=== PATIENT | female | born 1965 | race Asian ===

== ENCOUNTER → 2016-10-10 | Outpatient (CLI) | payer MEDICAID | LOC: FIMAGING 14:39 | DX: Z12.31 Encounter for screening mammogram for malignant neoplasm of breast (principal) | CPT/HCPCS: G0202 ==

== ENCOUNTER → 2016-10-26 | Outpatient (CLI) | payer MEDICAID | LOC: FIMAGING 14:50 | PROVIDERS: ATTEND Emergency Medicine | DX: R92.8 Other abnormal and inconclusive findings on diagnostic imaging of breast (principal) | CPT/HCPCS: G0206 ==

== ENCOUNTER → 2016-10-26 | Outpatient (CLI) | payer MEDICAID ==
[2016-10-26 17:00] LABS: C-REACTIVE PROTEIN < 5.0 mg/L (<10.0)
== END ==
LOC: FLAB 16:01
PROVIDERS: ATTEND Emergency Medicine
DX: M25.541 Pain in joints of right hand (principal); M25.561 Pain in right knee; M25.562 Pain in left knee

== ENCOUNTER → 2016-10-26 | Outpatient (CLI) | payer MEDICAID | LOC: FIMAGING 15:55 | PROVIDERS: ATTEND Emergency Medicine | DX: M79.644 Pain in right finger(s) (principal) | CPT/HCPCS: G0206 ==

== ENCOUNTER → 2017-01-26 | Outpatient (CLI) | payer MEDICAID | LOC: FIMAGING 08:16 | PROVIDERS: ATTEND Physician Assistant | DX: R13.14 Dysphagia, pharyngoesophageal phase (principal); K21.9 Gastro-esophageal reflux disease without esophagitis ==

== ENCOUNTER 2017-06-28 22:23 | Inpatient (IN) | payer MEDICAID ==
[2017-06-28] MEDS ORDERED: HYDROmorphONE/DILAUDID 1 MG/ML INJ IVP ONE (22:36)
[2017-06-28] MEDS ORDERED: NS 1,000 ML IV ONE ×2 (22:36→22:58)
[2017-06-28] MEDS ORDERED: ONDANSETRON 4 MG/2 ML VIAL IVP ONE (22:36)
--- NOTE | 2017-06-28 22:40 | EDPHY ---
H & P Stated Complaint: abd pain HPI/ROS: HPI CHIEF COMPLAINT: Abdominal pain HISTORY OF PRESENT ILLNESS: This patient very pleasant 51-year-old female she presents emergency room by private vehicle with her significant other for abdominal pain. The history comes from her significant other/boyfriend at bedside. According to him 45 minutes to an hour ago she was in the kitchen started developing abdominal pain rather severe. It is located in her epigastric region it is unclear at this time if her radiates anywhere. The patient presents emergency room screaming in pain I am unable at this time to get an accurate history review of systems due to her being so uncomfortable. The history comes from her boyfriend. Current pain level 10/10. Located epigastric right upper quadrant. She is screaming in pain. Past Medical History: Denies significant medical history except for GERD. Past Surgical History: Significant other reports some type of esophageal surgery no other significant abdominal surgeries. Social History: Denies daily use drugs alcohol tobacco products. Family History: Noncontributory. ROS REVIEW OF SYSTEMS: Limited at this time. Exam Constitutional writhing in pain, screaming, unable to answer questions triage nursing summary reviewed, vital signs reviewed, awake/alert. Eyes normal conjunctivae and sclera, EOMI, PERRLA. HENT normal inspection, atraumatic, moist mucus membranes, no epistaxis, neck supple/ no meningismus, no raccoon eyes. Respiratory clear to auscultation bilaterally, normal breath sounds, no respiratory distress, no wheezing. Cardiovascular rate normal, regular rhythm, no murmur, no edema, distal pulses normal. Gastrointestinal tender palpation in the epigastric region, no rebound, no guarding, normal bowel sounds, no distension, no pulsatile mass. Genitourinary no CVA tenderness. Musculoskeletal no midline vertebral tenderness, full range of motion, no calf swelling, no tenderness of extremities, no meningismus, good pulses, neurovascularly intact. Skin pink, warm, & dry, no rash, skin atraumatic. Neurologic awake, alert and oriented x 3, AAOx3, moves all 4 extremities equally, motor intact, sensory intact, CN II-XII intact, normal cerebellar, normal vision, normal speech. Psychiatric normal mood/affect. Heme/Lymph/Immune no lymphadenopathy. Differential diagnosis includes but is not limited to and in no particular order : Bowel obstruction, appendicitis, gallbladder disease, diverticulitis, colitis , enteritis, perforated viscus, gastritis, GERD, esophagitis, urinary tract infection, pyelonephritis, kidney stones Medical Decision Making: Plan for this patient IV established with IV fluid bolus, 1 mg IV Dilaudid for acute pain control, 4 mg IV Zofran for nausea, ultrasound right upper quadrant, upright chest x-ray to evaluate for free air, EKG, troponin, lipase and LFTs. Re-evaluation: EKG interpretation by me on record in [employer] system. Impression time of EKG 2250, this is sinus rhythm rate of 53. No acute ischemic changes appreciated. Unremarkable EKG. 2315: Patient's initial lactic acid 2.7. Lactic acid was not pulled for sepsis. It was evaluated for abdominal pain. However will repeat after IV fluids. 0121: Patient's ultrasound shows no gallstones however there is trace pericholecystic fluid a CBD duct that is dilated 6 mm and gallbladder wall thickening 3.4 mm. This called to me by Dr. Ez Kelly. 0127: I have asked Dr. Latonia Jimenez with surgery to come see and evaluate this patient. She does have reproducible epigastric pain on exam right upper quadrant pain. It is noted her bilirubin is not elevated LFTs are not elevated however she did have 3 episodes of vomiting here. Has significant pain or epigastric right upper quadrant. No significant lower abdominal pain. Given her ultrasound report it is possible she has acalculous cholecystitis. I did ask Dr. Felder if she would like me to perform a CT scan abdomen pelvis with IV contrast tell possibly daily other cause of abdominal pain but however at this time she would like to come and see this patient, and hold off on the scan at this time. Source: Patient - Personal History LMP (Females 10-55): Post Menopausal Current Tetanus/Diphtheria Vaccine: Yes Current Tetanus Diphtheria and Acellular Pertussis (TDAP): Yes - Medical/Surgical History Hx Asthma: No Hx Chronic Respiratory Disease: No Hx Diabetes: No Hx Cardiac Disease: No Hx Renal Disease: No Hx Cirrhosis: No Hx Alcoholism: No Hx HIV/AIDS: No Hx Splenectomy or Spleen Trauma: No Other PMH: GERD - Social History Smoking Status: Never smoked Constitutional: Initial Vital Signs Temperature (C) 36.0 C 06/28/17 22:26 Heart Rate 47 L 06/28/17 22:26 Respiratory Rate 24 H 11/16/17 22:26 Blood Pressure 128/71 H 06/28/17 22:26 O2 Sat (%) 100 06/28/17 22:26 O2 Delivery Mode Room Air O2 (L/minute) 2 Allergies/Adverse Reactions: ibuprofen Allergy (Verified 06/29/17 09:35) GI Distress Home Medications: Medication Instructions Recorded Omeprazole [Prilosec 20 mg] 40 mg PO DAILY 06/28/17 C/E/Zn/Cu/OM3/DHA/EPA/LUT/ZEAX 1 each PO DAILY 06/29/17 [Preservision Areds 2 Softgel] Carboxymethylcellulose 1% [Refresh 1 drop EACHEYE DAILY PRN 06/29/17 Celluvisc (*)] Cholecalciferol Vit D3 [Vitamin D3 1,000 units PO DAILY 06/29/17 (*)] Multivitamins [Multivitamin (*)] 1 each PO DAILY 06/29/17 Medical Decision Making - Data Points Laboratory Results: Laboratory Results 06/30/17 05:18 06/30/17 05:18 Medications Given: Hyoscyamine Sulfate (Levsin, Hyomax-Sl) 0.125 mg PO Q6HRS PRN PRN Reason: Pain, Breakthrough Stop: 12/27/17 11:59 Last Admin: 06/30/17 15:22 Dose: 0.125 mg Potassium Chloride/Dextrose/Sod Cl (D5w 1/2 Ns W/ 20 Kcl/L) 1,000 mls @ 100 mls /hr IV CONT CHERRY Stop: 12/26/17 01:59 Last Admin: 06/30/17 17:30 Dose: 1,000 mls Lorazepam (Ativan) 0.5 - 1 mg PO Q4HRS PRN PRN Reason: Anxiety, Able to Take PO Stop: 12/27/17 15:26 Last Admin: 06/30/17 16:50 Dose: 1 mg Pantoprazole Sodium (Protonix) 40 mg IVP BID CHERRY Stop: 12/27/17 20:59 Last Admin: 06/30/17 20:57 Dose: 40 mg Promethazine HCl (Phenergan) 6.25 - 12.5 mg IVP Q6HRS PRN PRN Reason: Nausea/Vomiting, Can't Take PO Stop: 12/26/17 09:23 Last Admin: 06/29/17 20:53 Dose: 6.25 mg Senna/Docusate Sodium (Senokot-S) 1 - 2 tab PO BID CHERRY PRN Reason: Protocol Stop: 12/27/17 08:59 Last Admin: 06/30/17 20:58 Dose: Not Given Discontinued Medications Ertapenem (Invanz) 1 gm IVP ONCE ONE PRN Reason: Protocol Stop: 06/29/17 19:30 Last Admin: 06/29/17 20:29 Dose: 1 gm Hydromorphone HCl (Dilaudid) 1 mg IVP EDNOW ONE Stop: 06/28/17 22:37 Last Admin: 06/28/17 22:44 Dose: 1 mg Hydromorphone HCl (Dilaudid) 0.5 mg IVP EDNOW ONE Stop: 06/29/17 00:01 Last Admin: 06/29/17 00:02 Dose: 0.5 mg Sodium Chloride (Ns) 1,000 mls @ 0 mls/hr IV EDNOW ONE; Wide Open PRN Reason: Protocol Stop: 06/28/17 22:37 Last Admin: 06/28/17 22:47 Dose: 1,000 mls Sodium Chloride (Ns) 1,000 mls @ 0 mls/hr IV ONCE ONE PRN Reason: Wide Open Stop: 06/28/17 22:59 Last Admin: 06/28/17 23:30 Dose: 1,000 mls Sodium Chloride (Ns) 1,000 mls @ 0 mls/hr IV ONCE ONE PRN Reason: Wide Open Stop: 06/29/17 01:15 Last Admin: 06/29/17 01:24 Dose: 1,000 mls Morphine Sulfate (Morphine) 2 mg IVP Q1HR PRN PRN Reason: Pain, Severe Unable to Take PO Stop: 07/09/17 01:48 Last Admin: 06/30/17 14:54 Dose: 2 mg Ondansetron HCl (Zofran) 4 mg IVP EDNOW ONE Stop: 06/28/17 22:37 Last Admin: 06/28/17 22:45 Dose: 4 mg Ondansetron HCl (Zofran) 4 mg IVP EDNOW ONE Stop: 06/29/17 01:14 Last Admin: 06/29/17 01:20 Dose: 4 mg Ondansetron HCl (Zofran) 4 mg IVP Q4HRS PRN PRN Reason: Nausea/Vomiting, Can't Take PO Stop: 12/26/17 01:49 Last Admin: 06/30/17 14:57 Dose: 4 mg Pantoprazole Sodium (Protonix) 40 mg PO DAILY [facility] Stop: 12/26/17 08:59 Last Admin: 06/29/17 10:29 Dose: Not Given Pantoprazole Sodium (Protonix) 40 mg IVP DAILY [facility] Stop: 12/27/17 08:59 Last Admin: 06/30/17 08:43 Dose: 40 mg Polyethylene Glycol/Electrolytes (Gavilyte - G) 4,000 ml PO ONCE ONE Stop: 06/30/17 12:13 Last Admin: 06/30/17 15:34 Dose: 4,000 ml Polyethylene Glycol/Electrolytes (Gavilyte - G) 4,000 ml PO ONCE ONE Stop: 06/30/17 15:31 Last Admin: 06/30/17 15:36 Dose: Not Given Departure - Departure Disposition: [facility] Inpatient Acute Clinical Impression: Abdominal pain Qualifiers: Abdominal location: right upper quadrant Qualified Code(s): R10.11 - Right upper quadrant pain Condition: Fair
[2017-06-28 22:49] LABS: % IMMATURE GRANULYOCYTES 0.3 % (0.0-1.1); ABSOLUTE IMMATURE GRANULOCYTES 0.03 10^3/uL (0.00-0.10); ADD DIFF? NO; ADD MORPH? NO; ADD SCAN? NO; ATYPICAL LYMPHOCYTE FLAG 10 (0-99); FRAGMENT RBC FLAG 0 (0-99); HEMATOCRIT 42.1 % (38.0-47.0); HEMOGLOBIN 14.5 g/dL (12.6-16.3); LEFT SHIFT FLG 0 (0-99); LIPEMIA HEMOLYSIS FLAG 90 (0-99); MEAN CELL HEMOGLOBIN 29.8 pg (27.9-34.1); MEAN CELL HEMOGLOBIN CONCENTR. 34.4 g/dL (32.4-36.7); MEAN CELL VOLUME 86.6 fL (81.5-99.8); MEAN PLATELET VOLUME 9.5 fL (8.7-11.7); PLATELET CLUMPS FLAG 10 (0-99); PLATELET COUNT 247 10^3/uL (150-400); RED BLOOD CELL COUNT 4.86 10^6/uL (4.18-5.33); RED CELL DISTRIBUTION WIDTH 13.2 % (11.5-15.2)
--- NOTE | 2017-06-28 22:53 | CPEKG ---
Heart Rate: 53 RR Interval: 1132 P-R Interval: 176 QRSD Interval: 88 QT Interval: 500 QTC Interval: 470 P Ponce: 16 QRS Ponce: 80 T Wave Ponce: 50 EKG Severity - NORMAL ECG - EKG Impression: SINUS RHYTHM Electronically Signed By: Mo Reyes 01-Jul-2017 13:56:53
[2017-06-28 22:58] LABS: APTT 23.3 SEC (23.0-38.0); INR 0.96 (0.83-1.16); PROTIME(PATIENT) 12.7 SEC (12.0-15.0)
[2017-06-28 23:04] LABS: ALANINE AMINOTRANSFERASE 45 IU/L (9-52); ALBUMIN 4.4 g/dL (3.5-5.0); ALKALINE PHOSPHATASE 90 IU/L (38-126); ANION GAP 13 mEq/L (8-16); ASPARTATE AMINOTRANSFERASE 27 IU/L (14-46); BILIRUBIN,TOTAL 0.2 mg/dL (0.1-1.4); BILIRUBIN-UNCONJUGATED 0.2 mg/dL (0.0-1.1); CALCIUM 9.5 mg/dL (8.5-10.4); CARBON DIOXIDE 24 mEq/l (22-31); CHLORIDE 107 mEq/L (97-110); CREATININE 0.8 mg/dL (0.6-1.0); GLOMERULAR FILTRATION RATE > 60; GLUCOSE 114 mg/dL (70-100); POTASSIUM 3.8 mEq/L (3.5-5.2); SODIUM 144 mEq/L (134-144); TOTAL PROTEIN 6.8 g/dL (6.3-8.2)
[2017-06-28 23:15] LABS: TROPONIN I < 0.012 ng/mL (0.000-0.034)
[2017-06-28] MEDS ORDERED: HYDROmorphONE/DILAUDID 1 MG/ML INJ ONE (23:59)
[2017-06-29] MEDS ORDERED: HYDROmorphONE/DILAUDID 1 MG/ML INJ IVP ONE
[2017-06-29 00:03] LABS: COLOR YELLOW; LEUKOCYTE ESTERASE,URINE 2+ (NEGATIVE); NITRITE,URINE NEGATIVE (NEGATIVE)
[2017-06-29 00:04] LABS: MUCUS TRACE /lpf (NONE-1+); WBC,URINE 15-25 /hpf (0-3)
[2017-06-29] MEDS ORDERED: ONDANSETRON 4 MG/2 ML VIAL IVP ONE (01:13)
[2017-06-29] MEDS ORDERED: NS 1,000 ML IV ONE (01:14)
[2017-06-29] MEDS ORDERED: ACETAMINOPHEN 325 MG TAB PO PRN (01:49)
[2017-06-29] MEDS: ONDANSETRON 4 MG/2 ML VIAL IVP PRN ×3 (02:47→17:57)
--- NOTE | 2017-06-29 02:55 | GHP ---
[f rep st] HISTORY AND PHYSICAL DATE OF ADMISSION: 06/29/2017 CHIEF COMPLAINT: Abdominal pain. HISTORY OF PRESENT ILLNESS: The patient is a 51-year-old woman who went out to dinner with her frien d. She returned home and had abrupt onset of abdominal pain which dropped her to her knees. Her hus band observed her at home for approximately 5 minutes and then brought her into the emergency room. He has never seen her in pain like this before. In the emergency room she had laboratory work obtain ed which is essentially normal as well as an ultrasound which showed no gallstones, mild gallbladder wall thickening, and a mildly dilated common bile duct. Her pain has since then resolved. She had a ssociated nausea, vomiting. PAST MEDICAL HISTORY: Esophageal stricture. PAST SURGICAL HISTORY: None. SOCIAL HISTORY: She is a nonsmoker. FAMILY HISTORY: No family history of gallbladder disease. REVIEW OF SYSTEMS: Difficult to obtain as she is not participating in the exam fully. PHYSICAL EXAMINATION: VITALS: Reviewed. GENERAL: Pleasant, well-nourished, well-groomed woman daily sears on bed sleeping very quiet throughout the exam. Only participates with a lot of direct questionin g and will answer appropriately otherwise her is answering for her. HEENT: Normocephalic no gross hearing deficits. Mucous membranes moist. Pupils equal and round. No scleral icterus. LUNG S: Clear to auscultation bilaterally. No increased work of breathing. CARDIAC: Regular rate. ABD OMEN: Bowel sounds present. She is soft and nontender in my exam. No distention. MUSCULOSKELETAL: Normal nails. NEUROLOGIC: Grossly intact. PSYCHIATRIC: Very quiet. SKIN: Warm and dry. IMPRESSION AND PLAN: A 51-year-old woman who may have passed a gallstone as on ultrasound there are no additional gallstones. She is asymptomatic. We will watch her overnight. She could also have ac alculous cholecystitis. I can consider obtaining a HIDA scan tomorrow morning. I do not think that she passed a kidney stone. As she is more alert, then we can ask her more questions about her bowel habits and make sure that she does not have a bowel obstruction. At this time, I do not think that i s what is going on. Also, in the differential could be an ulcer although her pain has improved great ly. Again, we will admit her overnight and monitor her. /[id number]/MODL
[2017-06-29 05:20] LABS: % IMMATURE GRANULYOCYTES 0.3 % (0.0-1.1); ABSOLUTE IMMATURE GRANULOCYTES 0.02 10^3/uL (0.00-0.10); ADD DIFF? NO; ADD MORPH? NO; ADD SCAN? NO; ATYPICAL LYMPHOCYTE FLAG 0 (0-99); FRAGMENT RBC FLAG 0 (0-99); HEMATOCRIT 38.7 % (38.0-47.0); HEMOGLOBIN 13.2 g/dL (12.6-16.3); LEFT SHIFT FLG 10 (0-99); LIPEMIA HEMOLYSIS FLAG 90 (0-99); MEAN CELL HEMOGLOBIN 29.9 pg (27.9-34.1); MEAN CELL HEMOGLOBIN CONCENTR. 34.1 g/dL (32.4-36.7); MEAN CELL VOLUME 87.6 fL (81.5-99.8); MEAN PLATELET VOLUME 10.1 fL (8.7-11.7); PLATELET CLUMPS FLAG 10 (0-99); PLATELET COUNT 204 10^3/uL (150-400); RED BLOOD CELL COUNT 4.42 10^6/uL (4.18-5.33); RED CELL DISTRIBUTION WIDTH 13.2 % (11.5-15.2)
[2017-06-29 05:38] LABS: ALANINE AMINOTRANSFERASE 59 IU/L (9-52); ALBUMIN 3.9 g/dL (3.5-5.0); ALKALINE PHOSPHATASE 67 IU/L (38-126); ANION GAP 12 mEq/L (8-16); ASPARTATE AMINOTRANSFERASE 41 IU/L (14-46); BILIRUBIN,TOTAL 0.2 mg/dL (0.1-1.4); CALCIUM 8.4 mg/dL (8.5-10.4); CARBON DIOXIDE 22 mEq/l (22-31); CHLORIDE 108 mEq/L (97-110); CREATININE 0.6 mg/dL (0.6-1.0); GLOMERULAR FILTRATION RATE > 60; GLUCOSE 111 mg/dL (70-100); POTASSIUM 4.3 mEq/L (3.5-5.2); SODIUM 142 mEq/L (134-144); TOTAL PROTEIN 6.3 g/dL (6.3-8.2)
[2017-06-29] MEDS ORDERED: PANTOPRAZOLE SODIUM 40 MG TAB PO SCH (09:00)
--- NOTE | 2017-06-29 09:30 | SOAPPROG ---
SOAP Progress Note Assessment/Plan: Assessment: Epigastric abdominal pain Nausea and Vomiting Hx of GERD Plan: 51 year old female presents with epigastric abdominal pain, nausea, and vomiting , which started shortly after eating [place] food last night. US showed gallbladder wall thickening, but no cholelithiasis. Today, pt with persistent nausea and vomiting. She reports the abdominal pain has mildly improved. Will obtain HIDA scan for further evaluation of hepatobiliary function. Can also consider an EGD to evaluate for ulcers, given patient's history of GERD. Will continue to administer pain and nausea medications as needed. Consider CT if pain progresses to rule out SBO or other source. Addendum: HIDA normal, saw patient at 1730 and continued diffuse abdominal pain. Will order CT 06/29/17 12:03 06/29/17 17:50 Subjective: Pt is a 51 yo female with history of GERD who presented to the emergency room with complaints of abdominal pain, nausea, and vomiting, which started abruptly after eating. Pt had US done at that time, which showed gallbladder wall thickening. This morning, pt still with persistent nausea, vomiting, and abdominal pain despite morphine and zofran. Pt states the emesis has been dark in color, shes describes as "dark chocolate". Pt does report some mild improvement in the pain. Denies any diarrhea, chest pain, shortness of breath, or fevers. Denies experiencing similar symptoms in the past. Takes 40mg of omeprazole daily. Per , pt had an esophageal dilation done about 6 months ago, due to narrowing of her esophagus from scar tissue caused by GERD. Objective: General: Pt appears uncomfortable due to pain. No acute distress Skin: Warm and dry HEENT: Normocephalic. No gross hearing deficits. Mucous membranes moist Resp: CTAB, no increased work of breathing Cardiac: RRR, no peripheral edema. DP & PT pulses 2+ and equal Abdomen: Non distended. Mild epigastric and RUQ ttp with voluntary guarding. Negative London's sign. MSK: Moving all extremities equally Neuro: Alert and appropriate Vital Signs Temp Pulse Resp BP Pulse Ox 36.5 C 74 17 131/87 H 92 06/29/17 08:22 06/29/17 08:22 06/29/17 08:22 06/29/17 08:22 06/29/17 08:22 Laboratory Results 06/29/17 04:36 06/29/17 04:36 06/28/17 06/29/17 06/30/17 05:59 05:59 05:59 Intake Total 3300 Output Total 601 500 Balance 2699 -500 PT 12.7 SEC (12.0-15.0) 06/28/17 22:40 INR 0.96 (0.83-1.16) 06/28/17 22:40 ICD10 Worksheet Patient Problems: Problems Problem Status Onset Abdominal pain Acute - ICD10 Problem Qualifiers (1) Abdominal pain
[2017-06-29] MEDS: PROMETHAZINE HCL 25 MG/ML INJ IVP PRN ×2 (09:45→20:53)
[2017-06-29] MEDS ORDERED: SINCALIDE 5 MCG VIAL IJ ONE (10:25)
[2017-06-29] MEDS ORDERED: IOPAMIDOL (ISOVUE-300) 100 ML BTL ONE (17:44)
[2017-06-29] MEDS ORDERED: ERTAPENEM 1 GM VIAL IVP ONE (19:29)
[2017-06-30] MEDS: D5W 1/2 NS W/ 20 KCl/L 1,000 ML IV SCH ×3 (02:28→17:30)
[2017-06-30 05:57] LABS: % IMMATURE GRANULYOCYTES 0.3 % (0.0-1.1); ABSOLUTE IMMATURE GRANULOCYTES 0.02 10^3/uL (0.00-0.10); ADD DIFF? NO; ADD MORPH? NO; ADD SCAN? NO; ATYPICAL LYMPHOCYTE FLAG 0 (0-99); FRAGMENT RBC FLAG 0 (0-99); HEMATOCRIT 42.7 % (38.0-47.0); HEMOGLOBIN 14.2 g/dL (12.6-16.3); LEFT SHIFT FLG 0 (0-99); LIPEMIA HEMOLYSIS FLAG 80 (0-99); MEAN CELL HEMOGLOBIN 29.1 pg (27.9-34.1); MEAN CELL HEMOGLOBIN CONCENTR. 33.3 g/dL (32.4-36.7); MEAN CELL VOLUME 87.5 fL (81.5-99.8); MEAN PLATELET VOLUME 9.8 fL (8.7-11.7); PLATELET CLUMPS FLAG 0 (0-99); PLATELET COUNT 217 10^3/uL (150-400); RED BLOOD CELL COUNT 4.88 10^6/uL (4.18-5.33); RED CELL DISTRIBUTION WIDTH 13.1 % (11.5-15.2)
[2017-06-30 06:23] LABS: ALANINE AMINOTRANSFERASE 48 IU/L (9-52); ALBUMIN 3.8 g/dL (3.5-5.0); ALKALINE PHOSPHATASE 70 IU/L (38-126); ANION GAP 12 mEq/L (8-16); ASPARTATE AMINOTRANSFERASE 25 IU/L (14-46); BILIRUBIN,TOTAL 0.5 mg/dL (0.1-1.4); CARBON DIOXIDE 23 mEq/l (22-31); CHLORIDE 105 mEq/L (97-110); CREATININE 0.7 mg/dL (0.6-1.0); GLOMERULAR FILTRATION RATE > 60; GLUCOSE 95 mg/dL (70-100); POTASSIUM 4.1 mEq/L (3.5-5.2); SODIUM 140 mEq/L (134-144); TOTAL PROTEIN 6.2 g/dL (6.3-8.2)
[2017-06-30] MEDS ORDERED: BISACODYL 10 MG SUPP PR PRN (08:23)
[2017-06-30] MEDS ORDERED: POLYETHYLENE GLYCOL 3350 17 GM PKT PO PRN (08:23)
[2017-06-30] MEDS ORDERED: LACTULOSE 20 GM/30 ML UDCUP PO PRN (08:23)
[2017-06-30] MEDS ORDERED: MAGNESIUM HYDROXIDE 30 ML UDCUP PO PRN (08:23)
[2017-06-30] MEDS ORDERED: PANTOPRAZOLE SODIUM 40 MG VIAL IVP SCH (09:00)
[2017-06-30] MEDS: SENNOSIDES/DOCUSATE SODIUM TAB PO SCH ×2 (09:04→20:58)
--- NOTE | 2017-06-30 11:34 | SOAPPROG ---
SOAP Progress Note Assessment/Plan: Assessment: Assessment and Plan: 51 year old female presents with epigastric abdominal pain, nausea, and vomiting which started shortly after eating [place] food 06/28/2017. She has a history of GERD and requires esophageal dilatation per report Differential includes acalculous cholecystitis - US showed minimal gallbladder wall thickening and a small amount of pericholecystic fluid but no cholelithiasis. HIDA scan wnl. CT scan with scant pericholecystic fluid, inflammation by gabriella and inflammatory changes. WBC and LFTs remain WNL. There is a left shift. I have not seen acalculous cholecystitis without elevated WBC or abnormal LFTS or absence of thickened gb wall in a non critically ill patient. Non palpable gallbladder. Could be an atypical presentation of acalculous cholecystitis, but at this time there is not a strong indication that performing cholecystectomy will resolve her symptoms.Her pain is diffuse which is bank representative of her peritonitis. I did not appreciate a palpable gallbladder. She does have feculazation of the terminal ileum. ? Viral ?Food Born ?Ulcer ?Other Appreciate Dr. Jimenez from [facility] evaluating her. Neuro - prn Morphine Resp - Cough deep breath Cards - hemodynamically stable GI - Awaiting flatus and BM. Will start Senna. Dr. Jimenez to see. Heme/ID - Gave 1 dose Invanz and slightly improved today. Unsure if related to ABX or if natural course of disease. Will continue. Dispo - Continue inpatient. Communicated with patient via group cio line. Pt understands and agrees with plan. 06/30/17 11:45 Subjective: Pt with persistent nausea, 1 episode of vomiting after oral contrast, and abdominal pain. Still no BM. Denies any flatulence. She does state that the morphine seems to provide her with transient relief, but the pain quickly returns. Wants to have a BM Objective: General: Well developed, well nourished female appears to be in pain. No acute distress. Boyfriend Regan at bedside Skin: Warm and dry Resp: CTAB, no increased work of breathing Cardiac: RRR, no murmurs Abdomen: Non distended. Hypoactive bowel sounds. Diffuse, mild tenderness to palpation, worse in the lower abdomen MSK: Moving all extremities equally Neuro: Awake and alert Psych: Appropriate mood and affect Vital Signs Temp Pulse Resp BP Pulse Ox 36.8 C 51 L 19 162/88 H 98 06/30/17 11:15 06/30/17 11:15 06/30/17 11:15 06/30/17 11:15 06/30/17 11:15 Laboratory Results 06/30/17 05:18 06/30/17 05:18 06/29/17 06/30/17 07/01/17 05:59 05:59 05:59 Intake Total 3300 2203 Output Total 601 2800 300 Balance 2699 -597 -300 PT 12.7 SEC (12.0-15.0) 06/28/17 22:40 INR 0.96 (0.83-1.16) 06/28/17 22:40 ICD10 Worksheet Patient Problems: Problems Problem Status Onset Abdominal pain Acute - ICD10 Problem Qualifiers (1) Abdominal pain Qualifiers: Abdominal location: right upper quadrant Qualified Code(s): R10.11 - Right upper quadrant pain
[2017-06-30] MEDS ORDERED: PEG 3350/NA SULF,BICARB,CL/KCL (GAVILYTE-G) 4000 ML BTL PO ONE ×2 (12:12→15:30)
--- NOTE | 2017-06-30 13:27 | GCON ---
[f rep st] CONSULTATION DATE OF CONSULTATION: 06/30/2017 CHIEF COMPLAINT: Abdominal pain. HISTORY OF PRESENT ILLNESS: I am asked to see this patient in consultation by Dr. Jimenez for chief co mplaint of abdominal pain. The patient is a pleasant 51-year-old followed by our office, seen by our nurse practitioner, Elvira Yu, for abdominal pain with more GERD-like symptoms, also with some u nderlying constipation. She did undergo an upper and lower endoscopy by Dr. Green on 12/06/2016. Up per endoscopy grossly appeared normal. She was empirically dilated. Colon revealed 2 polyps. Ileum was intubated and looked normal at that time. She then had an upper GI series done on January 26, 2017 that showed no stricture but frequent reflux. H pylori stool antigen was negative. Celiac serologi es were negative. She then ate out early this week and, 2 hours later, developed severe abdominal pa in with nausea and vomiting. No documented fever, but patient did feel sweaty. Presented to emergen cy room for further evaluation. There was concerns of possibly a mildly inflamed gallbladder, but no gallstones. No dilated ducts. HIDA scan showed normal ejection fraction of 46. CT scan showed mod erately distended distal ileum with some fecalization. The patient continues to have significant bulmaro n. She has not had any bowel movements for 3 days. No diarrhea. No blood in her stools. No melena . ALLERGIES: Ibuprofen. CURRENT MEDICATIONS: Prior to admission were omeprazole, multivitamins. PAST MEDICAL HISTORY: History of reflux, history of colon polyps, history of dysphagia that responde d to empiric esophageal dilation. FAMILY HISTORY: Notable for gallstones. SOCIAL HISTORY: The patient does not smoke. REVIEW OF SYSTEMS: I have performed a complete review of systems, which is negative except for the p ertinent positives and negatives noted above in the HPI. PHYSICAL EXAM: VITALS SIGNS: Afebrile at 36.8, BP 162/88, pulse is 51. CONSTITUTIONAL: She is katlin rt, oriented, appears somewhat uncomfortable. EYES: Non scleral icteric. HEENT: No oral lesions. CARDIOVASCULAR: Regular rate and rhythm. CHEST: Clear to auscultation. ABDOMEN: Has positive jacob wel sounds, although decreased. Soft. She is tender in the epigastric area but also in the right lo wer quadrant, but no rebound. NEUROLOGIC: Nonfocal. SKIN: No rashes. LABORATORY DATA: BUN and creatinine are normal. LFTs are normal. She had a mild elevated LFT on ad , but now normal. H pylori stool antigen is negative. Hematocrit normal at 42.7, with white count of 7. 06/28/17 right upper quadrant ultrasound shows no evidence of cholelithiasis or choledoc holithiasis, although borderline gallbladder wall thickening at 3.4. No sonographic London sign, alt davey patient had been given Dilaudid. There is possible nonobstructive right nephrolithiasis. HIDA scan, done 06/29/17, shows ejection fraction normal at 46%. CT scan of the abdomen, done on , shows possible acalculous cholecystitis. There is some pericholecystic fluid, along with inflamma tory changes in the gabriella hepatis in the celiac region. There is mild peritoneal fluid in the abdome n and pelvis. Moderate distention of the distal ileum with fecalization upstream, potentially relate d to chronic obstructive changes of the ileum. ASSESSMENT: Patient with abdominal pain, somewhat complicated by the fact that patient likely does h ave some underlying chronic abdominal symptoms. Has been followed in our office for constipation and gastroesophageal reflux disease-like symptoms, now with acute exacerbation, with some new qualities. The patient has not had fever or diarrhea, although she states the symptoms started after eating ou t. Could consider infectious cause or food poisoning, although would expect more diarrhea. The mily ent does have CT changes of the ileum, suggesting possible partial obstruction. Consider inflammator y changes of the ileum. The patient does have mildly distended gallbladder, and this could represent acalculous cholecystitis, but again, with several atypical features given her diffuse abdominal pain . I had a thorough discussion with the patient and her , who helps with interpretation, and I think, given the CT scan changes, I would recommend an upper and lower endoscopy for evaluation prio r to pursuing cholecystectomy to assure no other inflammatory process. The patient is in agreement. I discussed with Dr. Jimenez, who also is in agreement with endoscopy first. However, we will need to assess if patient is able to take a prep. PLAN: Will give trial of clear liquids. If she does well, then can begin slow GoLYTELY prep and, po tentially, upper endoscopy tomorrow or the next day, depending on how she is able to get through the prep. We will also give a trial of Levsin in the interim. Thank you for allowing me to participate in the care of your patient. /[id number]/MODL
--- NOTE | 2017-06-30 13:41 | ASMTCMCOM ---
CM Note CM Note Notes: Pt will have upper and lower endoscopies. Anticipate pt will DC with no needs but C/M available if needs change. Date Signed: 06/30/2017 01:41 PM Electronically Signed By:Deyanira Cabral LCSW
[2017-06-30] MEDS ORDERED: CARBOXYMETHYLCELLULOSE 1% 0.4 ML DROPERETTE EACHEYE PRN (14:37)
--- NOTE | 2017-06-30 14:49 | PDGENHP ---
History and Physical - Chief Complaint Acute on chronic abdominal pain - History of Present Illness Primary GI: Zulema Yu HPI: 51-year-old female presenting with acute abdominal pain characterized as cramping pain, located in the mid epigastric area and suprapubic area with associated nausea and vomiting, onset of symptoms on 06/28/2017, occurring approximately 2 hours postprandially, with duration of symptoms 5 minutes, and then patient seeking immediate medical attention at our emergency department. The symptoms have subsequently been relieved with IV morphine, but the morphine has resulted in significant lethargy, and the patient has been NPO for the past 2 days with no bowel movements. Prior to her onset of symptoms, the patient had been experiencing intermittent abdominal discomfort since at least November 2016, of similar character but lower severity and characterized as dull. She has undergone extensive workup including upper endoscopy, colonoscopy, which did not demonstrate any identifiable source of her discomfort, and then she underwent a GI series in January of 2017 which demonstrated frequent reflux but no stricture. The patient has been managed as an outpatient on proton pump inhibitor therapy, but has not been on any pain medications and has not received a formal diagnosis of irritable bowel syndrome. She was admitted to the surgical service for possible cholecystitis and has subsequently had a negative HIDA scan, CT of the abdomen demonstrating possible abida cholestatic fluid without any focal stone, no ductal dilatation, possible peritonitis with free fluid in the abdomen, and persistence of severe symptoms. Gastroenterology was consulted and is planning on upper endoscopy, colonoscopy tomorrow a.m. to evaluate the terminal ileum and determine whether the patient has partial obstruction at that location, and we have been consulted for medical comanagement. History Information - Allergies/Home Medication List Allergies/Adverse Reactions: ibuprofen Allergy (Verified 06/29/17 09:35) GI Distress Home Medications: Omeprazole [Prilosec 20 mg] 40 mg PO DAILY 06/28/17 [Last Taken 06/28/17] C/E/Zn/Cu/OM3/DHA/EPA/LUT/ZEAX [Preservision Areds 2 Softgel] 1 each PO DAILY [Last Taken Unknown] Carboxymethylcellulose 1% [Refresh Celluvisc (*)] 1 drop EACHEYE DAILY PRN 06/29 [Last Taken Unknown] Cholecalciferol Vit D3 [Vitamin D3 (*)] 1,000 units PO DAILY 06/29/17 [Last Taken Unknown] Multivitamins [Multivitamin (*)] 1 each PO DAILY 06/29/17 [Last Taken Unknown] I have personally reviewed and updated: family history, medical history, social history, surgical history - Past Medical History Additional medical history: Chronic abdominal pain syndrome. Gastroesophageal reflux disease currently on PPI. Esophageal stricture. Vitamin-D deficiency - Surgical History Additional surgical history: Esophageal dilation. EGD and colonoscopy in November 2016 with 2 polyps removed, otherwise normal - Family History Additional family history: No family history of bowel issues, does have family history of gallstones but no cholecystitis - Social History Smoking Status: Never smoked Alcohol Use: None Drug Use: None Additional social history: Normally independent in ADLs Review of Systems Review of Systems: ROS: 10pt was reviewed & negative except for what was stated in HPI & below Constitutional: Reports: other (Lethargy) Gastrointestinal: Reports: vomitting, abdominal pain, constipation, nausea Physical Exam Physical Exam: Temp Pulse Resp BP Pulse Ox 36.8 C 51 L 19 162/88 H 98 06/30/17 11:15 06/30/17 11:15 06/30/17 11:15 06/30/17 11:15 06/30/17 11:15 Constitutional: appears nourished, uncomfortable, No no apparent distress (Mild distress), No not in pain (Abdominal pain), No chronically ill appearing Eyes: PERRL, anicteric sclera, EOMI Ears, Nose, Mouth, Throat: moist mucous membranes, hearing normal, ears appear normal, no oral mucosal ulcers Cardiovascular: regular rate and rhythym, no murmur, rub, or gallop, No edema Respiratory: no respiratory distress, no rales or rhonchi, clear to auscultation Gastrointestinal: normoactive bowel sounds, no palpable masses, tenderness (Mid epigastric and suprapubic area, somewhat distractible), No guarding, No distension Skin: warm, normal color, no rashes or abrasions, no fluctuance, no induration, No mottled Neurologic: AAOx3, No weakness, No facial droop Psychiatric: interacting appropriately, not encephalopathic, anxious, other ( Lethargic but 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), No agitated Lab Data & Imaging Review 06/30/17 05:18 06/30/17 05:18 WBC 7.95 10^3/uL (3.80-9.50) 06/30/17 05:18 RBC 4.88 10^6/uL (4.18-5.33) 06/30/17 05:18 Hgb 14.2 g/dL (12.6-16.3) 06/30/17 05:18 Hct 42.7 % (38.0-47.0) 06/30/17 05:18 MCV 87.5 fL (81.5-99.8) 06/30/17 05:18 MCH 29.1 pg (27.9-34.1) 06/30/17 05:18 MCHC 33.3 g/dL (32.4-36.7) 06/30/17 05:18 RDW 13.1 % (11.5-15.2) 06/30/17 05:18 Plt Count 217 10^3/uL (150-400) 06/30/17 05:18 MPV 9.8 fL (8.7-11.7) 06/30/17 05:18 Neut % (Auto) 75.3 % (39.3-74.2) H 06/30/17 05:18 Lymph % (Auto) 19.1 % (15.0-45.0) 06/30/17 05:18 [place] % (Auto) 4.7 % (4.5-13.0) 06/30/17 05:18 Eos % (Auto) 0.3 % (0.6-7.6) L 06/30/17 05:18 Baso % (Auto) 0.3 % (0.3-1.7) 06/30/17 05:18 Nucleat RBC Rel Count 0.0 % (0.0-0.2) 06/30/17 05:18 Absolute Neuts (auto) 6.00 10^3/uL (1.70-6.50) 06/30/17 05:18 Absolute Lymphs (auto) 1.52 10^3/uL (1.00-3.00) 06/30/17 05:18 Absolute Monos (auto) 0.37 10^3/uL (0.30-0.80) 06/30/17 05:18 Absolute Eos (auto) 0.02 10^3/uL (0.03-0.40) L 06/30/17 05:18 Absolute Basos (auto) 0.02 10^3/uL (0.02-0.10) 06/30/17 05:18 Absolute Nucleated RBC 0.00 10^3/uL (0-0.01) 06/30/17 05:18 Immature Gran % 0.3 % (0.0-1.1) 06/30/17 05:18 Immature Gran # 0.02 10^3/uL (0.00-0.10) 06/30/17 05:18 PT 12.7 SEC (12.0-15.0) 06/28/17 22:40 INR 0.96 (0.83-1.16) 06/28/17 22:40 APTT 23.3 SEC (23.0-38.0) 06/28/17 22:40 VBG Lactic Acid 1.5 mmol/L (0.7-2.1) D 06/29/17 00:05 Sodium 140 mEq/L (134-144) 06/30/17 05:18 Potassium 4.1 mEq/L (3.5-5.2) 06/30/17 05:18 Chloride 105 mEq/L (97-110) 06/30/17 05:18 Carbon Dioxide 23 mEq/l (22-31) 06/30/17 05:18 Anion Gap 12 mEq/L (8-16) 06/30/17 05:18 BUN 12 mg/dL (7-23) 06/30/17 05:18 Creatinine 0.7 mg/dL (0.6-1.0) 06/30/17 05:18 Estimated GFR > 60 06/30/17 05:18 Glucose 95 mg/dL (70-100) 06/30/17 05:18 Calcium 9.0 mg/dL (8.5-10.4) 06/30/17 05:18 Total Bilirubin 0.5 mg/dL (0.1-1.4) D 06/30/17 05:18 Conjugated Bilirubin 0.0 mg/dL (0.0-0.5) 06/28/17 22:40 Unconjugated Bilirubin 0.2 mg/dL (0.0-1.1) 06/28/17 22:40 AST 25 IU/L (14-46) 06/30/17 05:18 ALT 48 IU/L (9-52) 06/30/17 05:18 Alkaline Phosphatase 70 IU/L (38-126) 06/30/17 05:18 Troponin I < 0.012 ng/mL (0.000-0.034) 06/28/17 22:40 Total Protein 6.2 g/dL (6.3-8.2) L 06/30/17 05:18 Albumin 3.8 g/dL (3.5-5.0) 06/30/17 05:18 Lipase 112 IU/L (23-300) 06/28/17 22:40 Beta HCG, Qual NEGATIVE 06/28/17 22:40 Urine Color YELLOW 06/28/17 23:51 Urine Appearance CLEAR 06/28/17 23:51 Urine pH 5.0 (5.0-7.5) 06/28/17 23:51 Ur Specific [place] 1.021 (1.002-1.030) 06/28/17 23:51 Urine Protein NEGATIVE (NEGATIVE) 06/28/17 23:51 Urine Ketones NEGATIVE (NEGATIVE) 06/28/17 23:51 Urine Blood NEGATIVE (NEGATIVE) 06/28/17 23:51 Urine Nitrate NEGATIVE (NEGATIVE) 06/28/17 23:51 Urine Bilirubin NEGATIVE (NEGATIVE) 06/28/17 23:51 Urine Urobilinogen NEGATIVE EU (0.2-1.0) 06/28/17 23:51 Ur Leukocyte Esterase 2+ (NEGATIVE) H 06/28/17 23:51 Urine RBC 1-3 /hpf (0-3) 06/28/17 23:51 Urine WBC 15-25 /hpf (0-3) H 06/28/17 23:51 Ur Epithelial Cells TRACE /lpf (NONE-1+) 06/28/17 23:51 Urine Mucus TRACE /lpf (NONE-1+) 06/28/17 23:51 Urine Glucose NEGATIVE (NEGATIVE) 06/28/17 23:51 Assessment & Plan Assessment: 51-year-old female presents with acute on chronic abdominal pain Plan: 1. Abdominal pain. Acute on chronic, new problem this provider, further workup indicated. Pain persists, we will pursue symptomatic and diagnostic workup as outlined below -potential etiologies include a calculus cholecystitis versus ileum obstruction versus peritonitis versus irritable bowel syndrome -patient has previously undergone extensive workup with essentially normal EGD and colonoscopy in November, no evidence of stricture on upper GI series in January, does have frequent reflux on upper GI series but has been adherent to daily PPI therapy, has had negative H pylori, negative fecal occult blood, negative IgA and transaminase, negative HIDA scan, but abdominal CT scan does raise question of peritonitis, ileum dilatation, and possible acalculous cholecystitis with some abida cholestatic fluid and possibly previously passed stone -reviewed outside records including 05/19/2015 [facility] ultrasound demonstrating fibroids, phlebitis of the [facility] and [facility] veins, per Dr. Misty Martin -that being said, the patient's pain is located in to distinctly different areas including the epigastric and suprapubic areas, somewhat arguing against acalculous cholecystitis, but potentially consistent with a more diffuse peritonitis or bowel distention -seems unlikely that she has infxn/inflammation w/ normal WBC, normal VS, will get inflammatory markers to further assess -continue to treat supportively with IV morphine, IV and oral antiemetics, expand antibiotic coverage to include Ativan as there may be a strong anxiety component, add Levsin per Gastroenterology for possible antispasmodic effect for possible irritable bowel syndrome -will pursue repeat upper and lower endoscopy, encourage patient to drink the bowel prep, proactively treat nauseous that she is able to affectively prep this evening -d/w Dr. Jimenez, surgical service will continue to consult daily and will be available for ex lap if that seems like the most appropriate next diagnostic step 2. Metabolic acidosis. Acute, secondary to lactic acid in the setting of nausea vomiting poor oral intake, lactic is down trended with IV fluids 3. Gastroesophageal reflux disease. Based on outpatient records and GI series, expand PPI to twice daily given possible reflux and/or ulceration component in the above Diet. Clears, NPO after MN PPx. High risk, SCDs given scopes tomorrow Code. Full Dispo. ADD uncertain, requiring ongoing inpatient admission for frequent IV Rx, IVF, w/u as above.
[2017-06-30] MEDS: ONDANSETRON 4 MG/2 ML VIAL IVP PRN (14:57)
[2017-06-30] MEDS: HYOSCYAMINE SULFATE 0.125 MG TAB PO PRN (15:22)
[2017-06-30] MEDS ORDERED: ONDANSETRON DISINTEGRATING 4 MG TAB PO PRN (15:26)
[2017-06-30] MEDS ORDERED: LORazepam 0.5 MG TAB PO PRN (15:27)
[2017-06-30] MEDS: PANTOPRAZOLE SODIUM 40 MG VIAL IVP SCH (20:57)
[2017-07-01] MEDS: ONDANSETRON 4 MG/2 ML VIAL IVP PRN ×2 (00:33→15:01)
[2017-07-01] MEDS: D5W 1/2 NS W/ 20 KCl/L 1,000 ML IV SCH ×2 (05:15→18:18)
[2017-07-01 05:35] LABS: % IMMATURE GRANULYOCYTES 0.4 % (0.0-1.1); ABSOLUTE IMMATURE GRANULOCYTES 0.03 10^3/uL (0.00-0.10); ADD DIFF? NO; ADD MORPH? NO; ADD SCAN? NO; ATYPICAL LYMPHOCYTE FLAG 0 (0-99); FRAGMENT RBC FLAG 20 (0-99); HEMATOCRIT 44.9 % (38.0-47.0); HEMOGLOBIN 15.1 g/dL (12.6-16.3); LEFT SHIFT FLG 0 (0-99); LIPEMIA HEMOLYSIS FLAG 80 (0-99); MEAN CELL HEMOGLOBIN 28.8 pg (27.9-34.1); MEAN CELL HEMOGLOBIN CONCENTR. 33.6 g/dL (32.4-36.7); MEAN CELL VOLUME 85.7 fL (81.5-99.8); MEAN PLATELET VOLUME 9.8 fL (8.7-11.7); PLATELET CLUMPS FLAG 0 (0-99); PLATELET COUNT 235 10^3/uL (150-400); RED BLOOD CELL COUNT 5.24 10^6/uL (4.18-5.33); RED CELL DISTRIBUTION WIDTH 12.8 % (11.5-15.2)
[2017-07-01 06:04] LABS: ALANINE AMINOTRANSFERASE 53 IU/L (9-52); ALBUMIN 3.8 g/dL (3.5-5.0); ALKALINE PHOSPHATASE 74 IU/L (38-126); ANION GAP 12 mEq/L (8-16); ASPARTATE AMINOTRANSFERASE 29 IU/L (14-46); BILIRUBIN,TOTAL 0.8 mg/dL (0.1-1.4); C-REACTIVE PROTEIN 14.6 mg/L (<10.0); CALCIUM 9.3 mg/dL (8.5-10.4); CARBON DIOXIDE 26 mEq/l (22-31); CHLORIDE 103 mEq/L (97-110); CREATININE 0.7 mg/dL (0.6-1.0); GLOMERULAR FILTRATION RATE > 60; GLUCOSE 103 mg/dL (70-100); SODIUM 141 mEq/L (134-144); TOTAL PROTEIN 6.4 g/dL (6.3-8.2)
[2017-07-01 06:26] LABS: SEDIMENTATION RATE 5 MM/HR (0-30)
[2017-07-01] MEDS: PANTOPRAZOLE SODIUM 40 MG VIAL IVP SCH ×2 (07:59→21:15)
[2017-07-01] MEDS: SENNOSIDES/DOCUSATE SODIUM TAB PO SCH ×2 (08:03→21:15)
[2017-07-01] MEDS: HYOSCYAMINE SULFATE 0.125 MG TAB PO PRN ×2 (08:10→18:16)
[2017-07-01] MEDS ORDERED: MIDAZOLAM 2 MG/2 ML VIAL ONE (11:23)
[2017-07-01] MEDS ORDERED: fentaNYL 100 MCG/2 ML INJ ONE (11:24)
--- NOTE | 2017-07-01 11:47 | PDANEPAE ---
ANE History of Present Illness abd pain ANE Past Medical History - Cardiovascular History Hx Hypertension: No Hx Arrhythmias: No Hx Chest Pain: No Hx Coronary Artery / Peripheral Vascular Disease: No Hx CHF / Valvular Disease: No Hx Palpitations: No - Pulmonary History Hx COPD: No Hx Asthma/Reactive Airway Disease: No Hx Recent Upper Respiratory Infection: No Hx Oxygen in Use at Home: No Hx Sleep Apnea: No Sleep Apnea Screening Result - Last Documented: Negative - Endocrine History Hx Diabetes: No ANE Review of Systems Review of systems is: negative Review of Systems: ANE Patient History - Allergies Allergies/Adverse Reactions: ibuprofen Allergy (Verified 06/29/17 09:35) GI Distress - Home Medications Home Medications: Omeprazole [Prilosec 20 mg] 40 mg PO DAILY 06/28/17 [Last Taken 06/28/17] C/E/Zn/Cu/OM3/DHA/EPA/LUT/ZEAX [Preservision Areds 2 Softgel] 1 each PO DAILY [Last Taken Unknown] Carboxymethylcellulose 1% [Refresh Celluvisc (*)] 1 drop EACHEYE DAILY PRN 06/29 [Last Taken Unknown] Cholecalciferol Vit D3 [Vitamin D3 (*)] 1,000 units PO DAILY 06/29/17 [Last Taken Unknown] Multivitamins [Multivitamin (*)] 1 each PO DAILY 06/29/17 [Last Taken Unknown] - NPO status NPO Since - Liquids (Date): 07/01/17 NPO Since - Liquids (Time): 00:00 NPO Since - Solids (Date): 07/01/17 NPO Since - Solids (Time): 00:00 - Smoking Hx Smoking Status: Never smoked - Alcohol Use Alcohol Use: None ANE Labs/Vital Signs - Labs Result Diagrams: 07/01/17 04:58 07/01/17 04:58 - Vital Signs Blood Pressure: 126/73 Heart Rate: 54 Respiratory Rate: 15 O2 Sat (%): 92 Height: 162.56 cm Weight: 65.77 kg ANE Physical Exam - Airway Mallampati Score: Class 3 Mouth exam: normal dental/mouth exam - Pulmonary Pulmonary: no respiratory distress - Cardiovascular Cardiovascular: regular rate and rhythym - ASA Status ASA Status: I
--- NOTE | 2017-07-01 12:10 | POSTOPPROG ---
Post Op Note Date of Operation: 07/01/17 Surgeon: Tanvi Jimenez Pre-op Diagnosis: abd pain abno imaging Post-op Diagnosis: mild gastric erythema Indication: abd pain Procedure: egd and colon Findings: mild gastric erythema Inf/Abcess present in the surg proc area at time of surgery?: No EBL: Minimal Complications: none Specimen(s): gastric biopy ilium biopsy
--- NOTE | 2017-07-01 12:14 | GIREPORT ---
[facility] Surgical Services - Endoscopy Department Patient Name: ZAID ROBLSE Procedure Date: 07/01/2017 11:21 AM Patient Type: Inpatient Attending MD/ ER Physician: Tanvi Jimenez MD Procedure: Upper GI endoscopy Indications: Epigastric abdominal pain Providers: Tanvi Jimenez MD Medicines: Midazolam 3 mg IV, Fentanyl 100 micrograms IV Complications: No immediate complications. Description of Procedure: After obtaining informed consent, the endoscope was passed under direct vision. Throughout the procedure, the patient's blood pressure, pulse, and oxygen saturations were monitored continuously. The Endoscope was intro duced through the mouth, and advanced to the second part of duodenum. The [facility] er GI endoscopy was accomplished without difficulty. The patient tolerated th e procedure well. Findings: The esophagus was normal. Localized mildly erythematous mucosa without bleeding was found in the gastric antrum. Biopsies were taken with a cold forceps for histology. Estimated blood loss was minimal. The examined duodenum was normal. Estimated Blood Loss: Estimated blood loss was minimal. Post Op Diagnosis: - Normal esophagus. - Erythematous mucosa in the antrum. Biopsied. - Normal examined duodenum. Recommendation: - Perform a colonoscopy today. - Use a proton pump inhibitor PO daily. - Thank you for allowing me to participate in the care of your patient. Attending Participation: I personally performed the entire procedure. Tanvi Jimenez MD Tanvi Jimenez MD 07/01/2017 12:13:32 PM This report has been signed electronicallyTanvi Jimenez MD Number of Addenda: 0 Note Initiated On: 07/01/2017 11:21 AM [email or web address]
--- NOTE | 2017-07-01 12:18 | GIREPORT ---
[facility] Surgical Services - Endoscopy Department Patient Name: ZAID ROBLES Procedure Date: 07/01/2017 11:20 AM Patient Type: Inpatient Attending MD/ ER Physician: Tanvi Jimenez MD Procedure: Colonoscopy Indications: Generalized abdominal pain, Abnormal CT of the GI tract. Patient states she is feeling better today. Providers: Tanvi Jimenez MD Medicines: Midazolam 4 mg IV, Fentanyl 100 micrograms IV, (medications documented represent total dosages for multiple procedures) Complications: No immediate complications. Description of Procedure: After obtaining informed consent, the scope was passed under direct vis ion. Throughout the procedure, the patient's blood pressure, pulse, and oxyg en saturations were monitored continuously. The Colonoscope with irrigatio n channel was introduced through the anus and advanced to 15 cm into the ileum. The colonoscopy was performed without difficulty. The patient tolerated the procedure well. The quality of the bowel preparation was good. The terminal ileum, ileocecal valve, appendiceal orifice, and rectum we re photographed. Time for both procedures was 24 minutes. Findings: The perianal and digital rectal examinations were normal. The terminal ileum appeared normal however not able to advance beyond 1 5 cm but mucosa here looked normal. Biopsies were taken with a cold forceps for histology. Estimated blood loss was minimal. The entire examined colon appeared normal. Estimated Blood Loss: Estimated blood loss was minimal. Post Op Diagnosis: - The examined portion of the ileum was normal. Biopsied. - The entire examined colon is normal. Recommendation: - Await pathology results. - Clear liquid diet. - Return patient to hospital [facility] for ongoing care. - If pain does not improve consider MRI enteroclysis to assess distal i lium. - Thank you for allowing me to participate in the care of your patient. Attending Participation: I personally performed the entire procedure. Tanvi Jimenez MD Tanvi Jimenez MD 07/01/2017 12:18:19 PM This report has been signed electronicallyTanvi Jimenez MD Number of Addenda: 0 Note Initiated On: 07/01/2017 11:20 AM Total Procedure Duration Time 0 hours 9 minutes 35 seconds [email or web address]
[2017-07-01] MEDS: PRESERVISION AREDS2 FORMULA EYE VIT 1 EACH PO SCH (13:11)
[2017-07-01] MEDS: CHOLECALCIFEROL VIT D3 1,000 UNITS TAB PO SCH (13:11)
[2017-07-01] MEDS: MULTIVITAMINS 1 EACH TAB PO SCH (13:11)
--- NOTE | 2017-07-01 14:33 | HOSPPROG ---
Hospitalist Progress Note Assessment/Plan: DIAGNOSES: -diffuse crampy abdominal pain of uncertain etiology -finding of free fluid in the abdomen and pelvis on CT scan, uncertain etiology but no abscess -history of 1 ovary removed for what sounds like probably benign cystic disease 1976, she does not recall which side My differential diagnosis for her current symptoms would include at least the following: -infectious enteritis, possibly viral versus bacterial -constipation predominant irritable bowel syndrome, aggravated by recent increase in stress levels -carcinomatosis of the abdomen from ovarian or other etiology (no evidence of masses or organs centered metastases on the CT, but I have seen cases of extensive carcinomatosis with severe episodic pain like this with no evidence of disease on any imaging studies including MR CT ultrasound) -non infectious inflammatory peritonitis PLANS: -I will review in detail with doctors Tony and Barbara -with continue current symptomatic management and hydration -I will order a GI pathogen panel if we can get a stool sample though that may be inaccessible for appeared of time after her recent colonoscopy and prep for that -question whether either laparoscopy or other testing to assess for carcinomatosis is indicated and I will review this with Dr. Tony Jimenez. A nuclear imaging scan could be helpful but can easily missed lesions when they are small enough which is often the case SUBJECTIVE: Patient is having worsening diffuse crampy abdominal pain and nausea this afternoon after her endoscopies. Before her endoscopies this morning she had less pain than yesterday but was certainly still having diffuse crampy pain. She continues to not have any specific fever symptoms, no vomiting. She is not at all hungry. Is hard to get much history from the patient right now is she is groggy and quite uncomfortable not really feeling like conversing. I did however have a very long review of her symptoms with her and we talked about her remote past as well as the recent past. He describes that she hasfor many years some abdominal complaints of that sound like to include both typical reflux and heartburn symptoms, improved recently with use of proton pump inhibitor, as well as some more diffuse abdominal pain episodes that are intermittent. Those actually are quite vaguely described and do not really seem that have been much of a problem for the patient, and certainly involve constipation that she has had. She is not really as far as he knew sought any evaluation or care for that latter symptom. More recently however around 2 months ago she started having increasing frequency and severity of diffuse abdominal cramping discomfort. The is not aware of anything in the way of triggers. As far as he is aware this is the 1st assessment she has had for abdominal cramping, and this is now her worst episode by far. He does mention that she has had a lot of increased stress over the last few months. OBJECTIVE Vitals reviewed: Stable without fever Exam: Awake but still a bit groggy after endoscopy, oriented She looks quite uncomfortable and is writhing a bit in bed and moaning skin warm dry color ok no jaundice, no rash or other concerning skin lesions resps not labored lungs clear BSs heart regular abd soft nondistended with some mild diffuse tenderness but not terribly tender no guarding or rebound, very active bowel sounds present, no palpable abnormality limbs warm, no edema, joints normal iv site ok I have reviewed the CT scan of her abdomen in details for the images, and to me important finding include some free fluid in the pelvis, lack of obstruction, no visible significant masses or abscesses, and nothing that really looks like an enteritis per se those CT is not a great would try and diagnose this. Her gallbladder findings are not very exciting to me on the imaging study. I reviewed the reports from her abdominal ultrasound and her upper and lower GI endoscopies which really reveal this time mild gastritis with minimal gallbladder findings. I have reviewed all of her laboratory data. 1 study I would like to do that isn 't done yet is a GI pathogen panel Objective: Vital Signs Temp Pulse Resp BP Pulse Ox 36.7 C 51 L 16 152/88 H 99 07/01/17 11:03 07/01/17 13:46 07/01/17 13:46 07/01/17 13:46 07/01/17 13:46 Laboratory Results 07/01/17 04:58 07/01/17 04:58 06/30/17 07/01/17 07/02/17 06:59 06:59 06:59 Intake Total 2622 Output Total 1385 Balance 1237 PT 12.7 SEC (12.0-15.0) 06/28/17 22:40 INR 0.96 (0.83-1.16) 06/28/17 22:40 - Time Spent With Patient Time Spent with Patient: greater than 35 minutes Time Spent with Patient: Greater than 35 minutes spent on this patients care, greater than 50% of time spent counseling, educating, and coordinating care regarding the above mentioned plan. ICD10 Worksheet Patient Problems: Problems Problem Status Onset Abdominal pain Acute
[2017-07-01 15:16] LABS: COLOR YELLOW; LEUKOCYTE ESTERASE,URINE NEGATIVE (NEGATIVE); NITRITE,URINE NEGATIVE (NEGATIVE)
[2017-07-02] MEDS: D5W 1/2 NS W/ 20 KCl/L 1,000 ML IV SCH ×2 (04:10→16:00)
[2017-07-02] MEDS: SENNOSIDES/DOCUSATE SODIUM TAB PO SCH ×2 (08:34→21:07)
[2017-07-02] MEDS: PANTOPRAZOLE SODIUM 40 MG VIAL IVP SCH ×2 (08:34→21:06)
--- NOTE | 2017-07-02 09:49 | SOAPPROG ---
SOAP Progress Note Assessment/Plan: Assessment: 51 year old woman with complaint of abdominal pain. GI work up has been negative. She has had a EGD/Colon her in the hospital which were normal. Extensive look in the TI was unremarkable. No signs of IBD/Crohn's disease. Biopsies were taken of TI, pending. Patient was better after prep suggesting that abdominal discomfort may have been from constipation. However today patient reports she is again having some abdominal pain. Work up of the GB has been essentially negative. No other GI work up at this time and treat symptomatically. Plan: 1. Further recommendations per Hospitalist and Surgeon. There was discussion regarding exploratory laparoscopy. Question of carcinomatosis raised by Hospitalist. (However all imaging has been negative for suggestion of carcinomatosis) 2. Diet as tolerated 3. Supportive care and treat with antispasmodics, Levsin 0.125 mg to 0.25 mg every 4 hours or Dicyclomine 10 - 20 mg every 6 hours as needed. 07/02/17 09:51 Subjective: CC: Abdominal pain Still with abdominal pain, diffuse but more significant in upper abdomen. Objective: Vital Signs Temp Pulse Resp BP Pulse Ox 36.4 C 56 L 17 152/83 H 92 07/02/17 07:54 07/02/17 07:54 07/02/17 07:54 07/02/17 07:54 07/02/17 07:54 Laboratory Results 07/01/17 04:58 07/01/17 04:58 07/01/17 07/02/17 07/03/17 05:59 05:59 05:59 Intake Total 2622 1543 Output Total 1385 1550 800 Balance 1237 -7 -800 PT 12.7 SEC (12.0-15.0) 06/28/17 22:40 INR 0.96 (0.83-1.16) 06/28/17 22:40 Generic Name Dose Route Start Last Admin Trade Name Freq PRN Reason Stop Dose Admin Acetaminophen 650 mg 06/29/17 01:49 Tylenol PO 12/26/17 01:48 Q4HRS PRN Pain, Mild/Fever, Can Take PO Bisacodyl 10 mg 06/30/17 08:23 Dulcolax Rectal [place] 12/27/17 08:22 DAILY PRN Constipation Protocol Carboxymethylcellulose 1 drop 06/30/17 14:37 Refresh Celluvisc EACHEYE 12/27/17 14:36 DAILY PRN Dry Irritated Eyes Cholecalciferol 1,000 units 07/01/17 09:00 07/01/17 13:11 Vitamin D PO 12/28/17 08:59 Not Given DAILY CHERRY Hyoscyamine Sulfate 0.125 mg 06/30/17 12:00 07/01/17 18:16 Levsin, Hyomax-Sl PO 12/27/17 11:59 0.125 mg Q6HRS PRN Administration Pain, Breakthrough Potassium Chloride/Dextrose/Sod Cl 1,000 mls @ 100 mls/hr 06/29/17 02:00 04:10 D5w 1/2 Ns W/ 20 Kcl/L IV 12/26/17 01:59 1,000 mls CONT CHERRY Administration Lactulose 20 gm 06/30/17 08:23 Cephulac PO 12/27/17 08:22 TID PRN Constipation Protocol Lorazepam 0.5 - 1 mg 06/30/17 15:27 06/30/17 16:50 Ativan PO 12/27/17 15:26 1 mg Q4HRS PRN Administration Anxiety, Able to Take PO Lorazepam 0.5 - 1 mg 06/30/17 15:27 Ativan Injection IVP 12/27/17 15:26 Q4HRS PRN Anxiety, Unable to Take PO Magnesium Hydroxide 30 ml 06/30/17 08:23 Milk Of Magnesia PO 12/27/17 08:22 DAILY PRN Constipation Protocol Morphine Sulfate 0.5 - 2 mg 06/30/17 15:27 07/02/17 00:41 Morphine IVP 07/09/17 01:48 2 mg Q2 PRN Administration Pain, Severe Unable to Take PO Multivitamins 1 each 07/01/17 09:00 07/01/17 13:11 Tab-A-Hanna PO 12/28/17 08:59 Not Given DAILY [facility] Multivitamins/Minerals 1 each 07/01/17 09:00 07/01/17 13:11 Preservision Areds2 Formula PO 12/28/17 08:59 Not Given DAILY [facility] Ondansetron HCl 4 - 8 mg 06/30/17 15:26 Zofran Odt PO 12/27/17 15:25 Q4HRS PRN Nausea/Vomiting, Use 1st Ondansetron HCl 4 - 8 mg 06/30/17 15:28 07/01/17 15:01 Zofran IVP 12/26/17 01:49 4 mg Q4HRS PRN Administration Nausea/Vomiting, Can't Take PO Pantoprazole Sodium 40 mg 06/30/17 21:00 07/02/17 08:34 Protonix IVP 12/27/17 20:59 40 mg BID CHERRY Administration Polyethylene Glycol 17 gm 06/30/17 08:23 Miralax PO 12/27/17 08:22 DAILY PRN Constipation, patient prefers Protocol Promethazine HCl 6.25 - 12.5 mg 06/29/17 09:24 06/29/17 20:53 Phenergan IVP 12/26/17 09:23 6.25 mg Q6HRS PRN Administration Nausea/Vomiting, Can't Take PO Senna/Docusate Sodium 1 - 2 tab 06/30/17 09:00 07/02/17 08:34 Senokot-S PO 12/27/17 08:59 2 tab BID CHERRY Administration Protocol Discontinued Medications Generic Name Dose Route Start Last Admin Trade Name Freq PRN Reason Stop Dose Admin Ertapenem 1 gm 06/29/17 19:29 06/29/17 20:29 Invanz IVP 06/29/17 19:30 1 gm ONCE ONE Administration Protocol Fentanyl Confirm 07/01/17 11:24 07/01/17 12:18 Sublimaze Administered 07/01/17 11:25 100 mcg Dose Administration 200 mcg .ROUTE .STK-MED ONE Hydromorphone HCl 1 mg 06/28/17 22:36 06/28/17 22:44 Dilaudid IVP 06/28/17 22:37 1 mg EDNOW ONE Administration Hydromorphone HCl Confirm 06/28/17 23:59 Dilaudid Administered 06/29/17 00:00 Dose 1 mg .ROUTE .STK-MED ONE Hydromorphone HCl 0.5 mg 06/29/17 00:00 06/29/17 00:02 Dilaudid IVP 06/29/17 00:01 0.5 mg EDNOW ONE Administration Sodium Chloride 1,000 mls @ 0 mls/hr 06/28/17 22:36 06/28/17 22:47 Ns IV 06/28/17 22:37 1,000 mls EDNOW ONE Administration Protocol Wide Open Sodium Chloride 1,000 mls @ 0 mls/hr 06/28/17 22:58 06/28/17 23:30 Ns IV 06/28/17 22:59 1,000 mls ONCE ONE Administration Wide Open Sodium Chloride 1,000 mls @ 0 mls/hr 06/29/17 01:14 06/29/17 01:24 Ns IV 06/29/17 01:15 1,000 mls ONCE ONE Administration Wide Open Iopamidol Confirm 06/29/17 17:44 Isovue-300 Administered 06/29/17 17:45 Dose 100 ml .ROUTE .STK-MED ONE Midazolam HCl Confirm 07/01/17 11:23 07/01/17 12:18 Versed Administered 07/01/17 11:24 4 mg Dose Administration 10 mg .ROUTE .STK-MED ONE Morphine Sulfate 2 mg 06/29/17 01:49 06/30/17 14:54 Morphine IVP 07/09/17 01:48 2 mg Q1HR PRN Administration Pain, Severe Unable to Take PO Ondansetron HCl 4 mg 06/28/17 22:36 06/28/17 22:45 Zofran IVP 06/28/17 22:37 4 mg EDNOW ONE Administration Ondansetron HCl 4 mg 06/29/17 01:13 06/29/17 01:20 Zofran IVP 06/29/17 01:14 4 mg EDNOW ONE Administration Ondansetron HCl 4 mg 06/29/17 01:50 06/30/17 14:57 Zofran IVP 12/26/17 01:49 4 mg Q4HRS PRN Administration Nausea/Vomiting, Can't Take PO Pantoprazole Sodium 40 mg 06/29/17 09:00 06/29/17 10:29 Protonix PO 12/26/17 08:59 Not Given DAILY [facility]ERRY Pantoprazole Sodium 40 mg 06/30/17 09:00 06/30/17 08:43 Protonix IVP 12/27/17 08:59 40 mg DAILY [facility]ERRY Administration Polyethylene Glycol/Electrolytes 4,000 ml 06/30/17 12:12 06/30/17 15:34 Gavilyte - G PO 06/30/17 12:13 4,000 ml ONCE ONE Administration Polyethylene Glycol/Electrolytes 4,000 ml 06/30/17 15:30 06/30/17 15:36 Gavilyte - G PO 06/30/17 15:31 Not Given ONCE ONE Sincalide Confirm 06/29/17 10:25 Kinevac Administered 06/29/17 10:26 Dose 5 mcg IJ .STK-MED ONE Physical Exam - Physical Exam General Appearance: alert, no apparent distress Respiratory: lungs clear, normal breath sounds Cardiac/Chest: regular rate, rhythm Abdomen: normal bowel sounds, soft, other (tender to palpation) Skin: normal color, warm/dry Neuro/Psych: no motor/sensory deficits, alert, normal mood/affect ICD10 Worksheet Patient Problems: Problems Problem Status Onset Abdominal pain Acute
[2017-07-02] MEDS: PRESERVISION AREDS2 FORMULA EYE VIT 1 EACH PO SCH ×2 (11:19→13:11)
[2017-07-02] MEDS: CHOLECALCIFEROL VIT D3 1,000 UNITS TAB PO SCH ×2 (11:20→13:11)
[2017-07-02] MEDS: MULTIVITAMINS 1 EACH TAB PO SCH ×2 (11:20→13:11)
--- NOTE | 2017-07-02 16:27 | HOSPPROG ---
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 Jimenez last evening and reviewed with Dr. Aleman today in detail -with continue current symptomatic management and hydration -await GI pathogen panel result -question whether either laparoscopy or other testing to assess for carcinomatosis is indicated at some point if either she is not improving or has ongoing recurrent episodes SUBJECTIVE: Continues to have diffuse crampy abdominal pain today, made better by use of a heating pad Not eating, some nausea No fever symptoms OBJECTIVE Vitals reviewed: Stable without fever Exam: Alert, oriented, looks uncomfortable but better than when I saw her last evening skin warm dry color ok no jaundice, no rash or other concerning skin lesions resps not labored lungs clear BSs heart regular abd soft nondistended still with diffuse tenderness, no guarding or rebound, bowel sounds present, no palpable abnormality limbs warm, no edema, joints normal iv site ok Laboratory data: GI pathogen panel pending Objective: Vital Signs Temp Pulse Resp BP Pulse Ox 36.7 C 59 L 15 122/76 H 92 07/02/17 15:31 07/02/17 15:31 07/02/17 15:31 07/02/17 15:31 07/02/17 15:31 Laboratory Results 07/01/17 04:58 07/01/17 04:58 07/01/17 07/02/17 07/03/17 06:59 06:59 06:59 Intake Total 2622 1543 Output Total 1385 1550 1200 Balance 1237 -7 -1200 PT 12.7 SEC (12.0-15.0) 06/28/17 22:40 INR 0.96 (0.83-1.16) 06/28/17 22:40 ICD10 Worksheet Patient Problems: Problems Problem Status Onset Abdominal pain Acute
--- NOTE | 2017-07-02 17:27 | SOAPPROG ---
[facility] Progress Note Assessment/Plan: Assessment/Plan: 51yo F with epigastric abdominal pain, n/v Imaging fairly nondiagnostic to this point. EGD colonoscopy yesterday mild gastritis, no other explanation of symptoms Unlikely acalculous cholecystitis (atypical presentation?) Appreciate hospitalist management and GI Surgery not indicated at this time, but will be available in case she needs to go to OR At this time, treat symptomatically with anti-spasmodics, heating pack and if no improvement, reconsider diagnostic lap for diagnosis Discussed c Dr. Trinidad S- history per . feeling much better today. had a small BM. tolerating clear liquids O- deferred as patient was resting comfortably 07/02/17 17:29 Objective: Vital Signs Temp Pulse Resp BP Pulse Ox 36.7 C 59 L 15 122/76 H 92 07/02/17 15:31 07/02/17 15:31 07/02/17 15:31 07/02/17 15:31 07/02/17 15:31 Laboratory Results 07/01/17 04:58 07/01/17 04:58 07/01/17 07/02/17 07/03/17 05:59 05:59 05:59 Intake Total 2622 1543 Output Total 1385 1550 1200 Balance 1237 -7 -1200 PT 12.7 SEC (12.0-15.0) 06/28/17 22:40 INR 0.96 (0.83-1.16) 06/28/17 22:40 ICD10 Worksheet Patient Problems: Problems Problem Status Onset Abdominal pain Acute
[2017-07-03] MEDS: D5W 1/2 NS W/ 20 KCl/L 1,000 ML IV SCH ×2 (03:16→23:19)
--- NOTE | 2017-07-03 10:06 | SOAPPROG ---
SOAP Progress Note Assessment/Plan: Assessment: 51 year old woman with continued complaint of abdominal pain. Had some diarrhea today. Her GI work up has been negative. Presentation most consistent with functional bowel, IBS. 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 Patient to get pelvic U/S. Plan: 1. Would advance diet to regular, high fiber. 2. Pelvic U/S to be ordered. 07/03/17 10:03 Subjective: CC: Abdominal pain Still with diffuse abdominal pain Patient very tearful and frustrated. Objective: Vital Signs Temp Pulse Resp BP Pulse Ox 36.6 C 52 L 16 151/83 H 95 07/03/17 08:02 07/03/17 08:02 07/03/17 08:02 07/03/17 08:02 07/03/17 08:02 Microbiology 07/01/17 16:10 Gastrointestinal Tract Panel (PCR) - Final Stool No Organism Detected Laboratory Results 07/01/17 04:58 07/01/17 04:58 07/02/17 07/03/17 07/04/17 05:59 05:59 05:59 Intake Total 1543 1790 Output Total 1550 2050 Balance -7 -260 PT 12.7 SEC (12.0-15.0) 06/28/17 22:40 INR 0.96 (0.83-1.16) 06/28/17 22:40 Generic Name Dose Route Start Last Admin Trade Name Freq PRN Reason Stop Dose Admin Acetaminophen 650 mg 06/29/17 01:49 Tylenol PO 12/26/17 01:48 Q4HRS PRN Pain, Mild/Fever, Can Take PO Bisacodyl 10 mg 06/30/17 08:23 Dulcolax Rectal [place] 12/27/17 08:22 DAILY PRN Constipation Protocol Carboxymethylcellulose 1 drop 06/30/17 14:37 Refresh Celluvisc EACHEYE 12/27/17 14:36 DAILY PRN Dry Irritated Eyes Cholecalciferol 1,000 units 07/01/17 09:00 07/02/17 13:11 Vitamin D PO 12/28/17 08:59 1,000 units DAILY CHERRY Administration Hyoscyamine Sulfate 0.125 mg 06/30/17 12:00 07/01/17 18:16 Levsin, Hyomax-Sl PO 12/27/17 11:59 0.125 mg Q6HRS PRN Administration Pain, Breakthrough Potassium Chloride/Dextrose/Sod Cl 1,000 mls @ 100 mls/hr 06/29/17 02:00 03:16 D5w 1/2 Ns W/ 20 Kcl/L IV 12/26/17 01:59 1,000 mls CONT CHERRY Administration Lactulose 20 gm 06/30/17 08:23 Cephulac PO 12/27/17 08:22 TID PRN Constipation Protocol Lorazepam 0.5 - 1 mg 06/30/17 15:27 06/30/17 16:50 Ativan PO 12/27/17 15:26 1 mg Q4HRS PRN Administration Anxiety, Able to Take PO Lorazepam 0.5 - 1 mg 06/30/17 15:27 Ativan Injection IVP 12/27/17 15:26 Q4HRS PRN Anxiety, Unable to Take PO Magnesium Hydroxide 30 ml 06/30/17 08:23 Milk Of Magnesia PO 12/27/17 08:22 DAILY PRN Constipation Protocol Morphine Sulfate 0.5 - 2 mg 06/30/17 15:27 07/03/17 03:16 Morphine IVP 07/09/17 01:48 2 mg Q2 PRN Administration Pain, Severe Unable to Take PO Multivitamins 1 each 07/01/17 09:00 07/02/17 13:11 Tab-A-Hanna PO 12/28/17 08:59 1 each DAILY [facility]Y Administration Multivitamins/Minerals 1 each 07/01/17 09:00 07/02/17 13:11 Preservision Areds2 Formula PO 12/28/17 08:59 1 each DAILY [facility]Y Administration Ondansetron HCl 4 - 8 mg 06/30/17 15:26 Zofran Odt PO 12/27/17 15:25 Q4HRS PRN Nausea/Vomiting, Use 1st Ondansetron HCl 4 - 8 mg 06/30/17 15:28 07/01/17 15:01 Zofran IVP 12/26/17 01:49 4 mg Q4HRS PRN Administration Nausea/Vomiting, Can't Take PO Pantoprazole Sodium 40 mg 06/30/17 21:00 07/02/17 21:06 Protonix IVP 12/27/17 20:59 40 mg BID CHERRY Administration Polyethylene Glycol 17 gm 06/30/17 08:23 Miralax PO 12/27/17 08:22 DAILY PRN Constipation, patient prefers Protocol Promethazine HCl 6.25 - 12.5 mg 06/29/17 09:24 06/29/17 20:53 Phenergan IVP 12/26/17 09:23 6.25 mg Q6HRS PRN Administration Nausea/Vomiting, Can't Take PO Senna/Docusate Sodium 1 - 2 tab 06/30/17 09:00 07/02/17 21:07 Senokot-S PO 12/27/17 08:59 Not Given BID [facility] Protocol Discontinued Medications Generic Name Dose Route Start Last Admin Trade Name Freq PRN Reason Stop Dose Admin Ertapenem 1 gm 06/29/17 19:29 06/29/17 20:29 Invanz IVP 06/29/17 19:30 1 gm ONCE ONE Administration Protocol Fentanyl Confirm 07/01/17 11:24 07/01/17 12:18 Sublimaze Administered 07/01/17 11:25 100 mcg Dose Administration 200 mcg .ROUTE .STK-MED ONE Hydromorphone HCl 1 mg 06/28/17 22:36 06/28/17 22:44 Dilaudid IVP 06/28/17 22:37 1 mg EDNOW ONE Administration Hydromorphone HCl Confirm 06/28/17 23:59 Dilaudid Administered 06/29/17 00:00 Dose 1 mg .ROUTE .STK-MED ONE Hydromorphone HCl 0.5 mg 06/29/17 00:00 06/29/17 00:02 Dilaudid IVP 06/29/17 00:01 0.5 mg EDNOW ONE Administration Sodium Chloride 1,000 mls @ 0 mls/hr 06/28/17 22:36 06/28/17 22:47 Ns IV 06/28/17 22:37 1,000 mls EDNOW ONE Administration Protocol Wide Open Sodium Chloride 1,000 mls @ 0 mls/hr 06/28/17 22:58 06/28/17 23:30 Ns IV 06/28/17 22:59 1,000 mls ONCE ONE Administration Wide Open Sodium Chloride 1,000 mls @ 0 mls/hr 06/29/17 01:14 06/29/17 01:24 Ns IV 06/29/17 01:15 1,000 mls ONCE ONE Administration Wide Open Iopamidol Confirm 06/29/17 17:44 Isovue-300 Administered 06/29/17 17:45 Dose 100 ml .ROUTE .STK-MED ONE Midazolam HCl Confirm 07/01/17 11:23 07/01/17 12:18 Versed Administered 07/01/17 11:24 4 mg Dose Administration 10 mg .ROUTE .STK-MED ONE Morphine Sulfate 2 mg 06/29/17 01:49 06/30/17 14:54 Morphine IVP 07/09/17 01:48 2 mg Q1HR PRN Administration Pain, Severe Unable to Take PO Ondansetron HCl 4 mg 06/28/17 22:36 06/28/17 22:45 Zofran IVP 06/28/17 22:37 4 mg EDNOW ONE Administration Ondansetron HCl 4 mg 06/29/17 01:13 06/29/17 01:20 Zofran IVP 06/29/17 01:14 4 mg EDNOW ONE Administration Ondansetron HCl 4 mg 06/29/17 01:50 06/30/17 14:57 Zofran IVP 12/26/17 01:49 4 mg Q4HRS PRN Administration Nausea/Vomiting, Can't Take PO Pantoprazole Sodium 40 mg 06/29/17 09:00 06/29/17 10:29 Protonix PO 12/26/17 08:59 Not Given DAILY [facility]Y Pantoprazole Sodium 40 mg 06/30/17 09:00 06/30/17 08:43 Protonix IVP 12/27/17 08:59 40 mg DAILY CHERRY Administration Polyethylene Glycol/Electrolytes 4,000 ml 06/30/17 12:12 06/30/17 15:34 Gavilyte - G PO 06/30/17 12:13 4,000 ml ONCE ONE Administration Polyethylene Glycol/Electrolytes 4,000 ml 06/30/17 15:30 06/30/17 15:36 Gavilyte - G PO 06/30/17 15:31 Not Given ONCE ONE Sincalide Confirm 06/29/17 10:25 Kinevac Administered 06/29/17 10:26 Dose 5 mcg IJ .STK-MED ONE Physical Exam - Physical Exam General Appearance: alert, other (tearful) Respiratory: lungs clear Cardiac/Chest: regular rate, rhythm Abdomen: normal bowel sounds, soft, other (tenderness to palpation) Skin: normal color, warm/dry Extremities: non-tender Neuro/Psych: alert ICD10 Worksheet Patient Problems: Problems Problem Status Onset Abdominal pain Acute
[2017-07-03] MEDS: CHOLECALCIFEROL VIT D3 1,000 UNITS TAB PO SCH (10:08)
[2017-07-03] MEDS: MULTIVITAMINS 1 EACH TAB PO SCH (10:08)
[2017-07-03] MEDS: PANTOPRAZOLE SODIUM 40 MG VIAL IVP SCH ×2 (10:08→20:56)
[2017-07-03] MEDS: PRESERVISION AREDS2 FORMULA EYE VIT 1 EACH PO SCH (10:08)
[2017-07-03] MEDS: HYOSCYAMINE SULFATE 0.125 MG TAB PO PRN ×2 (10:15→20:56)
[2017-07-03] MEDS: SENNOSIDES/DOCUSATE SODIUM TAB PO SCH ×2 (10:18→20:56)
--- NOTE | 2017-07-03 15:14 | ASMTCMCOM ---
CM Note CM Note Notes: Patient had unremarkable upper and lower endoscopies, and GI has not been able to find a cause for her symptoms. Her pelvic ultrasound today was normal, as well. Patient continues to complain of pain. Surgery has been consulted and will consider exploratory lap if symptoms do not resolve. CM will follow if any discharge needs are anticipated. Date Signed: 07/03/2017 03:14 PM Electronically Signed By:Sparkle Mckeon RN
--- NOTE | 2017-07-03 16:48 | HOSPPROG ---
Hospitalist Progress Note Assessment/Plan: DIAGNOSES: -diffuse crampy abdominal pain of uncertain etiology -finding of free fluid in the abdomen and pelvis on CT scan, uncertain etiology but no abscess -history of 1 ovary removed for what sounds like probably benign cystic disease 1976, she does not recall which side My differential diagnosis for her current symptoms would include at least the following: -infectious enteritis, possibly viral versus bacterial, the little specific evidence to suggest this and GI pathogen panel is negative -constipation predominant irritable bowel syndrome, aggravated by recent increase in stress levels -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 I am concerned about the possibility of other illness with the small free peritoneal fluid that is present however at this point short of doing an exploratory laparotomy there is nothing that we can see in her evaluation to point to a cause of this fluid or whether it is related to her symptoms, and there is nothing specific to suggest that this fluid is due to some concerning cause like malignancy or inflammatory disease other than the presence of the fluid itself. PLANS: -I reviewed with again Dr. Aleman today in detail -continue current symptomatic management and hydration -I have encouraged the patient to start trying the Levsin today to see if this helps -try to advance diet and increased activity at this point -will try and find some a Mandarin reading materials related to irritable bowel syndrome or have some translated for her -if her symptoms do not resolve here or if she continues to have recurrences of episodes like this may need to consider either laparoscopy or other assessment to further assess the significance of her small amount of free peritoneal fluid SUBJECTIVE: Her pain remains approximately unchanged from yesterday still crampy and diffuse. Notably she has not used any of the Levsin since July 01, and does not recall whether she review CV to any pain relief benefit from that medicine at that time due to grogginess at that time. She Has some nausea but almost no appetite. Has been taking in some modest amount of liquids, would like to try some solid food in the way of bread. No fever symptoms. No other new symptoms OBJECTIVE Vitals reviewed: Stable without fever Exam: Alert, oriented, looks uncomfortable but better than when I saw her last evening skin warm dry color ok no jaundice, no rash or other concerning skin lesions resps not labored lungs clear BSs heart regular abd soft nondistended still with diffuse tenderness, no guarding or rebound, bowel sounds present, no palpable abnormality limbs warm, no edema, joints normal iv site ok Laboratory data: GI pathogen panel negative Imaging studies: Transvaginal ultrasound today showed no abnormal findings of her remaining left ovary, or her uterus, right ovary already known to be missing surgically due to cyst disease. There is pelvic fluid as previously seen on on CT scan but no other abnormal findings at this time of concern or that would relate to her pain Objective: Vital Signs Temp Pulse Resp BP Pulse Ox 36.6 C 48 L 15 145/76 H 94 07/03/17 16:05 07/03/17 16:05 07/03/17 16:05 07/03/17 16:05 07/03/17 16:05 Microbiology 07/01/17 16:10 Gastrointestinal Tract Panel (PCR) - Final Stool No Organism Detected Laboratory Results 07/01/17 04:58 07/01/17 04:58 07/02/17 07/03/17 07/04/17 06:59 06:59 06:59 Intake Total 1543 1790 Output Total 1550 2050 Balance -7 -260 PT 12.7 SEC (12.0-15.0) 06/28/17 22:40 INR 0.96 (0.83-1.16) 06/28/17 22:40 - Time Spent With Patient Time Spent with Patient: greater than 35 minutes Time Spent with Patient: Greater than 35 minutes spent on this patients care, greater than 50% of time spent counseling, educating, and coordinating care regarding the above mentioned plan. ICD10 Worksheet Patient Problems: Problems Problem Status Onset Abdominal pain Acute
[2017-07-04] MEDS: D5W 1/2 NS W/ 20 KCl/L 1,000 ML IV SCH ×2 (08:25→19:30)
[2017-07-04] MEDS: PRESERVISION AREDS2 FORMULA EYE VIT 1 EACH PO SCH ×2 (08:26→08:30)
[2017-07-04] MEDS: MULTIVITAMINS 1 EACH TAB PO SCH ×2 (08:26→08:29)
[2017-07-04] MEDS: SENNOSIDES/DOCUSATE SODIUM TAB PO SCH ×3 (08:26→21:22)
[2017-07-04] MEDS: CHOLECALCIFEROL VIT D3 1,000 UNITS TAB PO SCH ×2 (08:26→08:29)
[2017-07-04] MEDS: PANTOPRAZOLE SODIUM 40 MG VIAL IVP SCH ×3 (08:26→21:22)
[2017-07-04] MEDS: ONDANSETRON 4 MG/2 ML VIAL IVP PRN (10:27)
--- NOTE | 2017-07-04 10:45 | SOAPPROG ---
SOAP Progress Note Assessment/Plan: Assessment: Patient is writhing in pain. Abdominal distention with minimal to absent BS Plan: 1. Surgical evaluation, Contacted Dr. Jimenez 2. [place] Abdominal X-Ray 07/04/17 10:42 Subjective: CC: Abdominal pain Patient with severe abdominal pain this morning. She is writhing in pain and was on the floor in agony Objective: Vital Signs Temp Pulse Resp BP Pulse Ox 36.7 C 56 L 17 155/89 H 94 07/04/17 07:45 07/04/17 07:45 07/04/17 07:45 07/04/17 07:45 07/04/17 07:45 Laboratory Results 07/01/17 04:58 07/01/17 04:58 07/03/17 07/04/17 07/05/17 05:59 05:59 05:59 Intake Total 1790 600 Output Total 2050 Balance -260 600 PT 12.7 SEC (12.0-15.0) 06/28/17 22:40 INR 0.96 (0.83-1.16) 06/28/17 22:40 Generic Name Dose Route Start Last Admin Trade Name Freq PRN Reason Stop Dose Admin Acetaminophen 650 mg 06/29/17 01:49 Tylenol PO 12/26/17 01:48 Q4HRS PRN Pain, Mild/Fever, Can Take PO Bisacodyl 10 mg 06/30/17 08:23 Dulcolax Rectal [place] 12/27/17 08:22 DAILY PRN Constipation Protocol Carboxymethylcellulose 1 drop 06/30/17 14:37 Refresh Celluvisc EACHEYE 12/27/17 14:36 DAILY PRN Dry Irritated Eyes Cholecalciferol 1,000 units 07/01/17 09:00 07/04/17 08:29 Vitamin D PO 12/28/17 08:59 Not Given DAILY [facility]Y Hyoscyamine Sulfate 0.125 mg 06/30/17 12:00 07/03/17 20:56 Levsin, Hyomax-Sl PO 12/27/17 11:59 0.125 mg Q6HRS PRN Administration Pain, Breakthrough Potassium Chloride/Dextrose/Sod Cl 1,000 mls @ 100 mls/hr 06/29/17 02:00 08:25 D5w 1/2 Ns W/ 20 Kcl/L IV 05/16/18 01:59 1,000 mls CONT CHERRY Administration Lactulose 20 gm 06/30/17 08:23 Cephulac PO 12/27/17 08:22 TID PRN Constipation Protocol Lorazepam 0.5 - 1 mg 06/30/17 15:27 06/30/17 16:50 Ativan PO 12/27/17 15:26 1 mg Q4HRS PRN Administration Anxiety, Able to Take PO Lorazepam 0.5 - 1 mg 06/30/17 15:27 Ativan Injection IVP 12/27/17 15:26 Q4HRS PRN Anxiety, Unable to Take PO Magnesium Hydroxide 30 ml 06/30/17 08:23 Milk Of Magnesia PO 12/27/17 08:22 DAILY PRN Constipation Protocol Morphine Sulfate 0.5 - 2 mg 06/30/17 15:27 07/04/17 10:26 Morphine IVP 07/09/17 01:48 2 mg Q2 PRN Administration Pain, Severe Unable to Take PO Multivitamins 1 each 07/01/17 09:00 07/04/17 08:29 Tab-A-Hanna PO 12/28/17 08:59 Not Given DAILY [facility] Multivitamins/Minerals 1 each 07/01/17 09:00 07/04/17 08:30 Preservision Areds2 Formula PO 12/28/17 08:59 Not Given DAILY [facility]ERRY Ondansetron HCl 4 - 8 mg 06/30/17 15:26 Zofran Odt PO 12/27/17 15:25 Q4HRS PRN Nausea/Vomiting, Use 1st Ondansetron HCl 4 - 8 mg 06/30/17 15:28 07/04/17 10:27 Zofran IVP 12/26/17 01:49 4 mg Q4HRS PRN Administration Nausea/Vomiting, Can't Take PO Pantoprazole Sodium 40 mg 06/30/17 21:00 07/04/17 08:29 Protonix IVP 12/27/17 20:59 Not Given BID CHERRY Polyethylene Glycol 17 gm 06/30/17 08:23 Miralax PO 12/27/17 08:22 DAILY PRN Constipation, patient prefers Protocol Promethazine HCl 6.25 - 12.5 mg 06/29/17 09:24 06/29/17 20:53 Phenergan IVP 12/26/17 09:23 6.25 mg Q6HRS PRN Administration Nausea/Vomiting, Can't Take PO Senna/Docusate Sodium 1 - 2 tab 06/30/17 09:00 07/04/17 08:28 Senokot-S PO 12/27/17 08:59 Not Given BID [facility] Protocol Discontinued Medications Generic Name Dose Route Start Last Admin Trade Name Lacy PRN Reason Stop Dose Admin Ertapenem 1 gm 06/29/17 19:29 06/29/17 20:29 Invanz IVP 06/29/17 19:30 1 gm ONCE ONE Administration Protocol Fentanyl Confirm 07/01/17 11:24 07/01/17 12:18 Sublimaze Administered 07/01/17 11:25 100 mcg Dose Administration 200 mcg .ROUTE .STK-MED ONE Hydromorphone HCl 1 mg 06/28/17 22:36 06/28/17 22:44 Dilaudid IVP 06/28/17 22:37 1 mg EDNOW ONE Administration Hydromorphone HCl Confirm 06/28/17 23:59 Dilaudid Administered 06/29/17 00:00 Dose 1 mg .ROUTE .STK-MED ONE Hydromorphone HCl 0.5 mg 06/29/17 00:00 06/29/17 00:02 Dilaudid IVP 06/29/17 00:01 0.5 mg EDNOW ONE Administration Sodium Chloride 1,000 mls @ 0 mls/hr 06/28/17 22:36 06/28/17 22:47 Ns IV 06/28/17 22:37 1,000 mls EDNOW ONE Administration Protocol Wide Open Sodium Chloride 1,000 mls @ 0 mls/hr 06/28/17 22:58 06/28/17 23:30 Ns IV 06/28/17 22:59 1,000 mls ONCE ONE Administration Wide Open Sodium Chloride 1,000 mls @ 0 mls/hr 06/29/17 01:14 06/29/17 01:24 Ns IV 06/29/17 01:15 1,000 mls ONCE ONE Administration Wide Open Iopamidol Confirm 06/29/17 17:44 Isovue-300 Administered 06/29/17 17:45 Dose 100 ml .ROUTE .STK-MED ONE Midazolam HCl Confirm 07/01/17 11:23 07/01/17 12:18 Versed Administered 07/01/17 11:24 4 mg Dose Administration 10 mg .ROUTE .STK-MED ONE Morphine Sulfate 2 mg 06/29/17 01:49 06/30/17 14:54 Morphine IVP 07/09/17 01:48 2 mg Q1HR PRN Administration Pain, Severe Unable to Take PO Ondansetron HCl 4 mg 06/28/17 22:36 06/28/17 22:45 Zofran IVP 06/28/17 22:37 4 mg EDNOW ONE Administration Ondansetron HCl 4 mg 06/29/17 01:13 06/29/17 01:20 Zofran IVP 06/29/17 01:14 4 mg EDNOW ONE Administration Ondansetron HCl 4 mg 06/29/17 01:50 06/30/17 14:57 Zofran IVP 12/26/17 01:49 4 mg Q4HRS PRN Administration Nausea/Vomiting, Can't Take PO Pantoprazole Sodium 40 mg 06/29/17 09:00 06/29/17 10:29 Protonix PO 12/26/17 08:59 Not Given DAILY [facility] Pantoprazole Sodium 40 mg 06/30/17 09:00 06/30/17 08:43 Protonix IVP 12/27/17 08:59 40 mg DAILY [facility] Administration Polyethylene Glycol/Electrolytes 4,000 ml 06/30/17 12:12 06/30/17 15:34 Gavilyte - G PO 06/30/17 12:13 4,000 ml ONCE ONE Administration Polyethylene Glycol/Electrolytes 4,000 ml 06/30/17 15:30 06/30/17 15:36 Gavilyte - G PO 06/30/17 15:31 Not Given ONCE ONE Sincalide Confirm 06/29/17 10:25 Kinevac Administered 06/29/17 10:26 Dose 5 mcg IJ .STK-MED ONE Physical Exam - Physical Exam General Appearance: moderate distress Respiratory: lungs clear, normal breath sounds Cardiac/Chest: tachycardia Abdomen: distended, other (minimal to absent BS) Skin: normal color, warm/dry ICD10 Worksheet Patient Problems: Problems Problem Status Onset Abdominal pain Acute
--- NOTE | 2017-07-04 11:10 | HOSPPROG ---
Hospitalist Progress Note Assessment/Plan: New patient encounter Language line parer used 51 yo female admitted with abd pain. Etiology remains unclear (IBS, acalculocholecystitis, enteritis, inflammatory peritonitis, carcinomatosis). Lot of generalized abd pain, but some localization to mid epigastric and RUQ -Negative pelvic US -CT A/P c/w free fluid in the abdomen and pelvis of unclear significance, no abscess, no malignancy -elevated CRP -Negative Upper endoscopy -Negative Lower endoscopy -No significant improvement on PPI -Unclear improvement on Levsin, she has intermittently taken a few doses -No further diarrhea -No constipation currently -Pain appears to be spasmodic Plan: -check stat labs, lipase -NPO -surgical evaluation, d/w nurse who has called surgery. -?consideration of exp lap -GI evaluation Subjective: Lots of abd pain today, generalized. No diarrhea. No BM. pain is intermittent. Objective: Vital Signs Temp Pulse Resp BP Pulse Ox 36.7 C 56 L 17 155/89 H 94 07/04/17 07:45 07/04/17 07:45 07/04/17 07:45 07/04/17 07:45 07/04/17 07:45 Laboratory Results 07/01/17 04:58 07/01/17 04:58 07/03/17 07/04/17 07/05/17 05:59 05:59 05:59 Intake Total 1790 600 Output Total 2050 Balance -260 600 PT 12.7 SEC (12.0-15.0) 06/28/17 22:40 INR 0.96 (0.83-1.16) 06/28/17 22:40 - Physical Exam Constitutional: no apparent distress Eyes: PERRL, EOMI Ears, Nose, Mouth, Throat: moist mucous membranes, hearing normal, ears appear normal Cardiovascular: regular rate and rhythym, No edema Respiratory: no respiratory distress, no rales or rhonchi, clear to auscultation Gastrointestinal: tenderness (generalized TTP, mostly RUQ and mid epigastric. decrased BS. Minimal distention. No R/G) Skin: warm Musculoskeletal: full muscle strength Neurologic: AAOx3, sensation intact bilaterally, weakness Psychiatric: interacting appropriately, not anxious, not encephalopathic ICD10 Worksheet Patient Problems: Problems Problem Status Onset Abdominal pain Acute
[2017-07-04 11:43] LABS: % IMMATURE GRANULYOCYTES 0.2 % (0.0-1.1); ABSOLUTE IMMATURE GRANULOCYTES 0.01 10^3/uL (0.00-0.10); ADD DIFF? NO; ADD MORPH? NO; ADD SCAN? NO; ATYPICAL LYMPHOCYTE FLAG 10 (0-99); FRAGMENT RBC FLAG 0 (0-99); HEMOGLOBIN 15.9 g/dL (12.6-16.3); LEFT SHIFT FLG 0 (0-99); LIPEMIA HEMOLYSIS FLAG 90 (0-99); MEAN CELL HEMOGLOBIN 29.4 pg (27.9-34.1); MEAN CELL HEMOGLOBIN CONCENTR. 35.3 g/dL (32.4-36.7); MEAN CELL VOLUME 83.3 fL (81.5-99.8); MEAN PLATELET VOLUME 9.6 fL (8.7-11.7); PLATELET CLUMPS FLAG 10 (0-99); PLATELET COUNT 256 10^3/uL (150-400); RED CELL DISTRIBUTION WIDTH 12.8 % (11.5-15.2)
[2017-07-04 12:03] LABS: ALANINE AMINOTRANSFERASE 101 IU/L (9-52); ALKALINE PHOSPHATASE 100 IU/L (38-126); ANION GAP 16 mEq/L (8-16); ASPARTATE AMINOTRANSFERASE 40 IU/L (14-46); BILIRUBIN,TOTAL 1.2 mg/dL (0.1-1.4); CALCIUM 9.4 mg/dL (8.5-10.4); CARBON DIOXIDE 19 mEq/l (22-31); CHLORIDE 106 mEq/L (97-110); CREATININE 0.7 mg/dL (0.6-1.0); GLOMERULAR FILTRATION RATE > 60; GLUCOSE 108 mg/dL (70-100); POTASSIUM 3.8 mEq/L (3.5-5.2); SODIUM 141 mEq/L (134-144); TOTAL PROTEIN 6.4 g/dL (6.3-8.2)
[2017-07-04] MEDS: PROMETHAZINE HCL 25 MG/ML INJ IVP PRN ×2 (13:40→21:24)
--- NOTE | 2017-07-04 14:43 | ASMTCMCOM ---
CM Note CM Note Notes: Abd xray today revealed SBO. NG tube placed. Pt's DC needs are unclear. Date Signed: 07/04/2017 02:42 PM Electronically Signed By:Deyanira Cabral LCSW
[2017-07-04] MEDS: LORazepam 2 MG/ML INJ IVP PRN (16:00)
--- NOTE | 2017-07-04 16:23 | SOAPPROG ---
SOAP Progress Note Assessment/Plan: Assessment: Assessment and Plan: 51 year old female presents with epigastric abdominal pain, nausea, and vomiting which started shortly after eating [place]ive[place] food 06/28/2017. She has a history of GERD and requires esophageal dilatation per report EGD and Colonoscopy normal Biopsies did not show explanation Stool studies negative Today worsening abdominal pain. Abdominal x ray with increased distention/ worsening sbo. Chaoxia states she does not want surgery Left shift improving May need laparoscopy or laparotomy if pain does not improve. Pain out of proportion to labs and imaging - patient currently states does not want surgery will continue to follow S: Was in writhing pain around 10 am. Evaluated around 10:45 am and marbleizing machine tender but comfortable in bed. O: Lying in bed, Regan at bedside Bowel sounds hypoactive, pain to percussion and palpation. Diffuse. More distended today 06/30/17 11:45 07/04/17 16:20 Objective: Vital Signs Temp Pulse Resp BP Pulse Ox 36.6 C 62 16 104/76 94 07/04/17 15:36 07/04/17 15:36 07/04/17 15:36 07/04/17 15:36 07/04/17 15:36 Laboratory Results 07/04/17 11:32 07/04/17 11:32 07/03/17 07/04/17 07/05/17 05:59 05:59 05:59 Intake Total 1790 600 Output Total 2050 Balance -260 600 PT 12.7 SEC (12.0-15.0) 06/28/17 22:40 INR 0.96 (0.83-1.16) 06/28/17 22:40 ICD10 Worksheet Patient Problems: Problems Problem Status Onset Abdominal pain Acute - ICD10 Problem Qualifiers (1) Abdominal pain Qualifiers: Abdominal location: right upper quadrant Qualified Code(s): R10.11 - Right upper quadrant pain
[2017-07-05] MEDS: HYOSCYAMINE SULFATE 0.125 MG TAB PO PRN (02:42)
[2017-07-05] MEDS: ONDANSETRON 4 MG/2 ML VIAL IVP PRN (02:57)
[2017-07-05] MEDS: D5W 1/2 NS W/ 20 KCl/L 1,000 ML IV SCH ×2 (05:33→15:40)
[2017-07-05] MEDS: PANTOPRAZOLE SODIUM 40 MG VIAL IVP SCH ×2 (08:07→20:00)
--- NOTE | 2017-07-05 08:27 | SOAPPROG ---
SOAP Progress Note Assessment/Plan: Assessment: Patient with mechanical SBO unclear etiology. No prior abdominal surgeries to put her at risk for intraabdominal adhesions. Patient with SBO, has had NG tube placed over night with decompression. Over 500 cc of fluid out over night from NG tube. Would recommend repeat [address] way abdominal xray this morning. Patient without prior history of abdominal surgery to cause adhesions. Would recommend evaluation of SB. SBFT or MRE. Will observe clinically today repeat abdominal xray and evaluate small bowel with abdominal imaging tomorrow. Mild bump in LFT's. ALT 101. Prior liver imaging negative. Will monitor LFTs. Plan: 1. Continue supportive care, NG tube decompression, antiemetics and fluid replacement. 2. Two way abdominal x-ray this am 3. Further imaging of the small bowel tomorrow, MRE 4. If no improvement of SBO may require surgery. 07/05/17 08:31 Subjective: CC: Abdominal pain and abnormal imaging Patient with severe episode of abdominal pain yesterday with SBO on abdominal xray. Patient resting more comfortably today, has had NG tube placed over night. Has had > 500 cc output form NG. Objective: Vital Signs Temp Pulse Resp BP Pulse Ox 36.8 C 62 16 119/78 96 07/05/17 03:00 07/05/17 03:00 07/05/17 03:00 07/05/17 03:00 07/05/17 03:00 Laboratory Results 07/04/17 11:32 07/04/17 11:32 07/04/17 07/05/17 07/06/17 05:59 05:59 05:59 Intake Total 600 2326 Output Total 1 Balance 600 2325 PT 12.7 SEC (12.0-15.0) 06/28/17 22:40 INR 0.96 (0.83-1.16) 06/28/17 22:40 Generic Name Dose Route Start Last Admin Trade Name Freq PRN Reason Stop Dose Admin Acetaminophen 650 mg 06/29/17 01:49 Tylenol PO 12/26/17 01:48 Q4HRS PRN Pain, Mild/Fever, Can Take PO Bisacodyl 10 mg 06/30/17 08:23 Dulcolax Rectal [place] 12/27/17 08:22 DAILY PRN Constipation Protocol Carboxymethylcellulose 1 drop 06/30/17 14:37 Refresh Celluvisc EACHEYE 12/27/17 14:36 DAILY PRN Dry Irritated Eyes Cholecalciferol 1,000 units 07/01/17 09:00 07/04/17 08:29 Vitamin D PO 12/28/17 08:59 Not Given DAILY [facility] Hyoscyamine Sulfate 0.125 mg 06/30/17 12:00 07/03/17 20:56 Levsin, Hyomax-Sl PO 12/27/17 11:59 0.125 mg Q6HRS PRN Administration Pain, Breakthrough Potassium Chloride/Dextrose/Sod Cl 1,000 mls @ 100 mls/hr 06/29/17 02:00 05:33 D5w 1/2 Ns W/ 20 Kcl/L IV 12/26/17 01:59 1,000 mls CONT CHERRY Administration Lactulose 20 gm 06/30/17 08:23 Cephulac PO 12/27/17 08:22 TID PRN Constipation Protocol Lorazepam 0.5 - 1 mg 06/30/17 15:27 06/30/17 16:50 Ativan PO 12/27/17 15:26 1 mg Q4HRS PRN Administration Anxiety, Able to Take PO Lorazepam 0.5 - 1 mg 06/30/17 15:27 07/04/17 16:00 Ativan Injection IVP 12/27/17 15:26 0.5 mg Q4HRS PRN Administration Anxiety, Unable to Take PO Magnesium Hydroxide 30 ml 06/30/17 08:23 Milk Of Magnesia PO 12/27/17 08:22 DAILY PRN Constipation Protocol Morphine Sulfate 2 - 4 mg 07/04/17 13:20 07/05/17 03:15 Morphine IVP 07/14/17 13:19 2 mg Q2 PRN Administration Pain, Severe Unable to Take PO Multivitamins 1 each 07/01/17 09:00 07/04/17 08:29 Tab-A-Hanna PO 12/28/17 08:59 Not Given DAILY [facility] Multivitamins/Minerals 1 each 07/01/17 09:00 07/04/17 08:30 Preservision Areds2 Formula PO 12/28/17 08:59 Not Given DAILY [facility] Ondansetron HCl 4 - 8 mg 06/30/17 15:26 Zofran Odt PO 12/27/17 15:25 Q4HRS PRN Nausea/Vomiting, Use 1st Ondansetron HCl 4 - 8 mg 06/30/17 15:28 07/05/17 02:57 Zofran IVP 12/26/17 01:49 4 mg Q4HRS PRN Administration Nausea/Vomiting, Can't Take PO Pantoprazole Sodium 40 mg 06/30/17 21:00 07/05/17 08:07 Protonix IVP 12/27/17 20:59 40 mg BID CHERRY Administration Polyethylene Glycol 17 gm 06/30/17 08:23 Miralax PO 12/27/17 08:22 DAILY PRN Constipation, patient prefers Protocol Promethazine HCl 6.25 - 12.5 mg 06/29/17 09:24 07/04/17 21:24 Phenergan IVP 12/26/17 09:23 12.5 mg Q6HRS PRN Administration Nausea/Vomiting, Can't Take PO Senna/Docusate Sodium 1 - 2 tab 06/30/17 09:00 07/04/17 21:22 Senokot-S PO 12/27/17 08:59 Not Given BID [facility] Protocol Discontinued Medications Generic Name Dose Route Start Last Admin Trade Name Freq PRN Reason Stop Dose Admin Ertapenem 1 gm 06/29/17 19:29 06/29/17 20:29 Invanz IVP 06/29/17 19:30 1 gm ONCE ONE Administration Protocol Fentanyl Confirm 07/01/17 11:24 07/01/17 12:18 Sublimaze Administered 07/01/17 11:25 100 mcg Dose Administration 200 mcg .ROUTE .STK-MED ONE Hydromorphone HCl 1 mg 06/28/17 22:36 06/28/17 22:44 Dilaudid IVP 06/28/17 22:37 1 mg EDNOW ONE Administration Hydromorphone HCl Confirm 06/28/17 23:59 Dilaudid Administered 06/29/17 00:00 Dose 1 mg .ROUTE .STK-MED ONE Hydromorphone HCl 0.5 mg 06/29/17 00:00 06/29/17 00:02 Dilaudid IVP 06/29/17 00:01 0.5 mg EDNOW ONE Administration Sodium Chloride 1,000 mls @ 0 mls/hr 06/28/17 22:36 06/28/17 22:47 Ns IV 06/28/17 22:37 1,000 mls EDNOW ONE Administration Protocol Wide Open Sodium Chloride 1,000 mls @ 0 mls/hr 06/28/17 22:58 06/28/17 23:30 Ns IV 06/28/17 22:59 1,000 mls ONCE ONE Administration Wide Open Sodium Chloride 1,000 mls @ 0 mls/hr 06/29/17 01:14 06/29/17 01:24 Ns IV 06/29/17 01:15 1,000 mls ONCE ONE Administration Wide Open Iopamidol Confirm 06/29/17 17:44 Isovue-300 Administered 06/29/17 17:45 Dose 100 ml .ROUTE .STK-MED ONE Midazolam HCl Confirm 07/01/17 11:23 07/01/17 12:18 Versed Administered 07/01/17 11:24 4 mg Dose Administration 10 mg .ROUTE .STK-MED ONE Morphine Sulfate 2 mg 06/29/17 01:49 06/30/17 14:54 Morphine IVP 07/09/17 01:48 2 mg Q1HR PRN Administration Pain, Severe Unable to Take PO Morphine Sulfate 0.5 - 2 mg 06/30/17 15:27 07/04/17 12:36 Morphine IVP 07/09/17 01:48 2 mg Q2 PRN Administration Pain, Severe Unable to Take PO Ondansetron HCl 4 mg 06/28/17 22:36 06/28/17 22:45 Zofran IVP 06/28/17 22:37 4 mg EDNOW ONE Administration Ondansetron HCl 4 mg 06/29/17 01:13 06/29/17 01:20 Zofran IVP 06/29/17 01:14 4 mg EDNOW ONE Administration Ondansetron HCl 4 mg 06/29/17 01:50 06/30/17 14:57 Zofran IVP 12/26/17 01:49 4 mg Q4HRS PRN Administration Nausea/Vomiting, Can't Take PO Pantoprazole Sodium 40 mg 06/29/17 09:00 06/29/17 10:29 Protonix PO 12/26/17 08:59 Not Given DAILY [facility] Pantoprazole Sodium 40 mg 06/30/17 09:00 06/30/17 08:43 Protonix IVP 12/27/17 08:59 40 mg DAILY CHERRY Administration Polyethylene Glycol/Electrolytes 4,000 ml 06/30/17 12:12 06/30/17 15:34 Gavilyte - G PO 06/30/17 12:13 4,000 ml ONCE ONE Administration Polyethylene Glycol/Electrolytes 4,000 ml 06/30/17 15:30 06/30/17 15:36 Gavilyte - G PO 06/30/17 15:31 Not Given ONCE ONE Sincalide Confirm 06/29/17 10:25 Kinevac Administered 06/29/17 10:26 Dose 5 mcg IJ .STK-MED ONE Physical Exam - Physical Exam General Appearance: other (sleeping) EENT: other (NG tube in place) Respiratory: lungs clear Cardiac/Chest: regular rate, rhythm Abdomen: soft, other (minmal BS) Skin: normal color, warm/dry ICD10 Worksheet Patient Problems: Problems Problem Status Onset Abdominal pain Acute
[2017-07-05] MEDS: MULTIVITAMINS 1 EACH TAB PO SCH (08:39)
[2017-07-05] MEDS: PRESERVISION AREDS2 FORMULA EYE VIT 1 EACH PO SCH (08:39)
[2017-07-05] MEDS: SENNOSIDES/DOCUSATE SODIUM TAB PO SCH ×2 (08:39→20:09)
[2017-07-05] MEDS: CHOLECALCIFEROL VIT D3 1,000 UNITS TAB PO SCH (08:39)
--- NOTE | 2017-07-05 09:28 | HOSPPROG ---
Hospitalist Progress Note Assessment/Plan: 51 yo female admitted with abd pain. Found to have a SBO yesterday on Hospital day #4. Etiology remains unclear. She has no hx of Abd Surgery. All imaging and studies has been negative prior to acute SBO yesterday. She has NGT in place. She prefers not to have surgery. She denies Flatus. Studies and work up: -Negative pelvic US -CT A/P c/w free fluid in the abdomen and pelvis of unclear significance, no abscess, no malignancy -elevated CRP -Negative Upper endoscopy -Negative Lower endoscopy Plan: -conservative mgmt, IVF, NGT -appreciate GI and Surgery reccs -Will need additional imaging tomorrow -NPO Dispo: keep inpatient Subjective: still with abd pain. denies flatus. no cp or SOB Objective: Vital Signs Temp Pulse Resp BP Pulse Ox 36.4 C 61 18 130/80 H 99 07/05/17 08:58 07/05/17 08:58 07/05/17 08:58 07/05/17 08:58 07/05/17 08:58 Laboratory Results 07/04/17 11:32 07/04/17 11:32 07/04/17 07/05/17 07/06/17 05:59 05:59 05:59 Intake Total 600 2326 Output Total 1 Balance 600 2325 PT 12.7 SEC (12.0-15.0) 06/28/17 22:40 INR 0.96 (0.83-1.16) 06/28/17 22:40 - Physical Exam Constitutional: no apparent distress Eyes: PERRL, EOMI Ears, Nose, Mouth, Throat: moist mucous membranes, hearing normal Cardiovascular: regular rate and rhythym, no murmur, rub, or gallop Respiratory: no respiratory distress, no rales or rhonchi Gastrointestinal: distension (mild distention), No normoactive bowel sounds ( decreased BS, but present) Skin: warm Neurologic: AAOx3 Psychiatric: interacting appropriately, not anxious, not encephalopathic ICD10 Worksheet Patient Problems: Problems Problem Status Onset Abdominal pain Acute
--- NOTE | 2017-07-05 10:00 | SOAPPROG ---
SOAP Progress Note Assessment/Plan: Assessment: Assessment and Plan: 51 year old female presents with epigastric abdominal pain, nausea, and vomiting which started shortly after eating Upper Sor[place] food 06/28/2017. She has a history of GERD and requires esophageal dilatation per report History of Chronic abdominal pain History of Right oophorectomy 20 years ago for cyst EGD and Colonoscopy normal Biopsies did not show explanation Stool studies negative X ray yesterday with increased distention/worsening sbo. Emesis last night [address] and feeling somewhat improved 2 way x ray pending May need laparoscopy or laparotomy if pain does not improve. will continue to follow S: Emesis and NG. Sore but not as much discomfort today O: Lying in bed, Regan at bedside NCAT, PER, No gross hearing defecits NG with bilious output CTAB, decreased at bases Regular rate Bowel sounds hypoactive, Can palpate much deeper today. Still distended. Warm and Dry Soft moaning while sleeping 06/30/17 11:45 07/04/17 16:20 07/05/17 09:55 Objective: Vital Signs Temp Pulse Resp BP Pulse Ox 36.4 C 61 18 130/80 H 99 07/05/17 08:58 07/05/17 08:58 07/05/17 08:58 07/05/17 08:58 07/05/17 08:58 Laboratory Results 07/04/17 11:32 07/04/17 11:32 07/04/17 07/05/17 07/06/17 05:59 05:59 05:59 Intake Total 600 2326 Output Total 1 Balance 600 2325 PT 12.7 SEC (12.0-15.0) 06/28/17 22:40 INR 0.96 (0.83-1.16) 06/28/17 22:40 ICD10 Worksheet Patient Problems: Problems Problem Status Onset Abdominal pain Acute - ICD10 Problem Qualifiers (1) Abdominal pain Qualifiers: Abdominal location: right upper quadrant Qualified Code(s): R10.11 - Right upper quadrant pain
[2017-07-05] MEDS: PROMETHAZINE HCL 25 MG/ML INJ IVP PRN (19:52)
[2017-07-05] MEDS: NS 1,000 ML IV SCH (20:03)
[2017-07-06] MEDS: NS 1,000 ML IV SCH ×2 (02:24→20:35)
[2017-07-06 05:33] LABS: % IMMATURE GRANULYOCYTES 0.3 % (0.0-1.1); ABSOLUTE IMMATURE GRANULOCYTES 0.02 10^3/uL (0.00-0.10); ADD DIFF? NO; ADD MORPH? NO; ADD SCAN? NO; ATYPICAL LYMPHOCYTE FLAG 40 (0-99); FRAGMENT RBC FLAG 0 (0-99); HEMATOCRIT 42.7 % (38.0-47.0); HEMOGLOBIN 14.4 g/dL (12.6-16.3); LEFT SHIFT FLG 0 (0-99); LIPEMIA HEMOLYSIS FLAG 80 (0-99); MEAN CELL HEMOGLOBIN 29.4 pg (27.9-34.1); MEAN CELL HEMOGLOBIN CONCENTR. 33.7 g/dL (32.4-36.7); MEAN CELL VOLUME 87.3 fL (81.5-99.8); MEAN PLATELET VOLUME 9.6 fL (8.7-11.7); PLATELET CLUMPS FLAG 0 (0-99); PLATELET COUNT 227 10^3/uL (150-400); RED BLOOD CELL COUNT 4.89 10^6/uL (4.18-5.33)
[2017-07-06 05:46] LABS: ALANINE AMINOTRANSFERASE 87 IU/L (9-52); ALBUMIN 3.2 g/dL (3.5-5.0); ALKALINE PHOSPHATASE 86 IU/L (38-126); ANION GAP 8 mEq/L (8-16); ASPARTATE AMINOTRANSFERASE 38 IU/L (14-46); CALCIUM 8.8 mg/dL (8.5-10.4); CARBON DIOXIDE 24 mEq/l (22-31); CHLORIDE 108 mEq/L (97-110); CREATININE 0.8 mg/dL (0.6-1.0); GLOMERULAR FILTRATION RATE > 60; GLUCOSE 83 mg/dL (70-100); POTASSIUM 3.9 mEq/L (3.5-5.2); SODIUM 140 mEq/L (134-144); TOTAL PROTEIN 5.4 g/dL (6.3-8.2)
[2017-07-06] MEDS: ONDANSETRON 4 MG/2 ML VIAL IVP PRN ×2 (07:04→08:41)
--- NOTE | 2017-07-06 08:15 | SOAPPROG ---
SOAP Progress Note Assessment/Plan: Assessment: Assessment and Plan: 51 year old female presents with epigastric abdominal pain, nausea, and vomiting which started shortly after eating Italian food 06/28/2017. She has a history of GERD and requires esophageal dilatation per report History of Chronic abdominal pain History of Right oophorectomy 20 years ago for cyst EGD and Colonoscopy normal Biopsies did not show explanation Stool studies negative X ray with increased distention/worsening sbo. Has intermittent crampy pain. I have ordered 250 cc of gastrograffin to be mixed with 100 cc of water and put down NG. Clamp NG. If emesis, put NG back to suction. If tolerates AXR at noon. If gastrograffin in colon (and without obvious adhesion) then likely not mechanical SBO. If transition point or does not reach colon by four hours then I think laparoscopy/laparotomy is reasonable at this point. S: Has spikes of pain which subside O: Lying in bed, NCAT, PER, No gross hearing defecits NG with scant thin yellow output CTAB, decreased at bases Regular rate Bowel sounds hypoactive, distended but soft. Can palpate well with no focal area of pain Warm and Dry 06/30/17 11:45 07/04/17 16:20 07/05/17 09:55 07/06/17 08:12 Objective: Vital Signs Temp Pulse Resp BP Pulse Ox 36.6 C 59 L 18 147/86 H 98 07/06/17 07:38 07/06/17 07:38 07/06/17 07:38 07/06/17 07:38 07/06/17 07:38 Laboratory Results 07/06/17 04:50 07/06/17 04:50 07/05/17 07/06/17 07/07/17 05:59 05:59 05:59 Intake Total 2326 Output Total 1 900 150 Balance 2325 -900 -150 PT 12.7 SEC (12.0-15.0) 06/28/17 22:40 INR 0.96 (0.83-1.16) 06/28/17 22:40 ICD10 Worksheet Patient Problems: Problems Problem Status Onset Abdominal pain Acute - ICD10 Problem Qualifiers (1) Abdominal pain Qualifiers: Abdominal location: right upper quadrant Qualified Code(s): R10.11 - Right upper quadrant pain
[2017-07-06] MEDS: PRESERVISION AREDS2 FORMULA EYE VIT 1 EACH PO SCH (08:24)
[2017-07-06] MEDS: SENNOSIDES/DOCUSATE SODIUM TAB PO SCH ×2 (08:24→20:36)
[2017-07-06] MEDS: MULTIVITAMINS 1 EACH TAB PO SCH (08:24)
[2017-07-06] MEDS: CHOLECALCIFEROL VIT D3 1,000 UNITS TAB PO SCH (08:24)
[2017-07-06] MEDS: PANTOPRAZOLE SODIUM 40 MG VIAL IVP SCH ×2 (08:41→20:36)
[2017-07-06] MEDS ORDERED: ACETAMINOPHEN 325 MG TAB PO PRN (08:43)
[2017-07-06] MEDS: LORazepam 2 MG/ML INJ IVP PRN (08:59)
[2017-07-06] MEDS ORDERED: BUPIVACAINE 0.5% 30 ML SDV ONE (09:19)
[2017-07-06] MEDS ORDERED: LR 1,000 ML IV ONE (09:43)
[2017-07-06] MEDS ORDERED: fentaNYL 100 MCG/2 ML INJ ONE (10:16)
[2017-07-06] MEDS ORDERED: PROPOFOL/EMULSION 500 MG/50 ML BOTTLE IV ONE (10:21)
[2017-07-06] MEDS ORDERED: MIDAZOLAM 2 MG/2 ML VIAL ONE (10:21)
--- NOTE | 2017-07-06 10:26 | HOSPPROG ---
Hospitalist Progress Note Assessment/Plan: 51 yo female admitted with abd pain. Found to have a SBO 07/04 on Hospital day # 4. Etiology remains unclear. She has no hx of Abd Surgery. All imaging and studies has been negative prior to acute SBO yesterday. She has NGT in place. Her abd is more distended. Her abd is more tender this morning She will have surgical management this morning Studies and work up: -Negative pelvic US -CT A/P c/w free fluid in the abdomen and pelvis of unclear significance, no abscess, no malignancy -elevated CRP -Negative Upper endoscopy -Negative Lower endoscopy -Negative stool studies Plan: -surgical mgmt today -pain mgmt Dispo: keep inpatient Case d/w Dr. Mejia Subjective: lots of abd pain. scheduled for surgery this morning. NPO. still no Flatus Objective: Vital Signs Temp Pulse Resp BP Pulse Ox 36.6 C 754 H 22 H 172/113 H 95 07/06/17 09:54 07/06/17 09:54 07/06/17 09:54 07/06/17 09:54 07/06/17 09:54 Laboratory Results 07/06/17 04:50 07/06/17 04:50 07/05/17 07/06/17 07/07/17 05:59 05:59 05:59 Intake Total 2326 Output Total 1 900 150 Balance 2325 -900 -150 PT 12.7 SEC (12.0-15.0) 06/28/17 22:40 INR 0.96 (0.83-1.16) 06/28/17 22:40 - Physical Exam Constitutional: no apparent distress Eyes: PERRL, EOMI Ears, Nose, Mouth, Throat: moist mucous membranes, hearing normal, ears appear normal Cardiovascular: regular rate and rhythym Respiratory: no respiratory distress, no rales or rhonchi Gastrointestinal: soft, non-tender abdomen, tenderness, distension, No normoactive bowel sounds Skin: warm Neurologic: AAOx3 Psychiatric: interacting appropriately, not anxious, not encephalopathic ICD10 Worksheet Patient Problems: Problems Problem Status Onset Abdominal pain Acute
--- NOTE | 2017-07-06 10:47 | PDANEPAE ---
ANE Past Medical History - Cardiovascular History Hx Hypertension: No Hx Arrhythmias: No Hx Chest Pain: No Hx Coronary Artery / Peripheral Vascular Disease: No Hx CHF / Valvular Disease: No Hx Palpitations: No - Pulmonary History Hx COPD: No Hx Asthma/Reactive Airway Disease: No Hx Recent Upper Respiratory Infection: No Hx Oxygen in Use at Home: No Hx Sleep Apnea: No Sleep Apnea Screening Result - Last Documented: Negative - Endocrine History Hx Diabetes: No ANE Review of Systems Review of Systems: ANE Patient History - Allergies Allergies/Adverse Reactions: ibuprofen Allergy (Verified 06/29/17 09:35) GI Distress - Home Medications Home Medications: Omeprazole [Prilosec 20 mg] 40 mg PO DAILY 06/28/17 [Last Taken 06/28/17] C/E/Zn/Cu/OM3/DHA/EPA/LUT/ZEAX [Preservision Areds 2 Softgel] 1 each PO DAILY [Last Taken Unknown] Carboxymethylcellulose 1% [Refresh Celluvisc (*)] 1 drop EACHEYE DAILY PRN 06/29 [Last Taken Unknown] Cholecalciferol Vit D3 [Vitamin D3 (*)] 1,000 units PO DAILY 06/29/17 [Last Taken Unknown] Multivitamins [Multivitamin (*)] 1 each PO DAILY 06/29/17 [Last Taken Unknown] - NPO status NPO Since - Liquids (Date): 07/04/17 NPO Since - Liquids (Time): 11:00 NPO Since - Solids (Date): 07/04/17 NPO Since - Solids (Time): 11:00 - Smoking Hx Smoking Status: Never smoked - Alcohol Use Alcohol Use: None ANE Labs/Vital Signs - Labs Result Diagrams: 07/06/17 04:50 07/06/17 04:50 - Vital Signs Blood Pressure: 172/113 Heart Rate: 754 Respiratory Rate: 22 O2 Sat (%): 95 Height: 162.56 cm Weight: 65.77 kg ANE Physical Exam - Airway Neck exam: FROM Mallampati Score: Class 1 Mouth exam: normal dental/mouth exam - Pulmonary Pulmonary: no respiratory distress, no rales or rhonchi, reduced air movement - Cardiovascular Cardiovascular: regular rate and rhythym, no murmur, rub, or gallop - ASA Status ASA Status: III, E ANE Anesthesia Plan Anesthesia Plan: general endotracheal anesthesia (RSI)
[2017-07-06] MEDS ORDERED: DEXAMETHASONE 4 MG/ML VIAL IVP PRN (10:48)
[2017-07-06] MEDS ORDERED: MEPERIDINE 25 MG/ML SYR IVP PRN (10:48)
[2017-07-06] MEDS ORDERED: ALBUTEROL 3 ML DEYVIAL IH PRN (10:48)
[2017-07-06] MEDS ORDERED: LR 500 ML IV PRN (10:48)
[2017-07-06] MEDS ORDERED: NALOXONE HCL 0.4 MG/ML INJ IVP PRN (10:48)
[2017-07-06] MEDS ORDERED: METOCLOPRAMIDE 10 MG/2 ML VIAL IVP PRN (10:48)
[2017-07-06] MEDS ORDERED: fentaNYL 100 MCG/2 ML INJ IVP PRN (10:48)
[2017-07-06] MEDS ORDERED: LIDOCAINE 2% 5 ML SDV ONE (10:49)
[2017-07-06] MEDS ORDERED: SUGAMMADEX SODIUM 200 MG/2 ML VIAL IVP ONE (10:49)
[2017-07-06] MEDS ORDERED: ONDANSETRON 4 MG/2 ML VIAL ONE (10:49)
[2017-07-06] MEDS ORDERED: ROCURONIUM 50 MG/5 ML VIAL ONE (10:49)
--- NOTE | 2017-07-06 11:32 | POSTOPPROG ---
Post Op Note Date of Operation: 07/06/17 Surgeon: Latonia Jimenez Anesthesiologist: annamaria Anesthesia: GET(General Endotracheal) Pre-op Diagnosis: bowel obstruction Post-op Diagnosis: same Indication: 51 yo with bowel obstruction Procedure: laparoscopy with lysis of adhesions Findings: large band around terminal ileum Inf/Abcess present in the surg proc area at time of surgery?: No Depth: Superfical (Skin SQ) EBL: Minimal Specimen(s): fluid for micro
--- NOTE | 2017-07-06 11:44 | POSTANESTH ---
Post Anesthetic Evaluation Cardiovascular Status: Normal, Stable Respiratory Status: Normal, Stable Level of Consciousness/Mental Status: Can Participate in Eval Pain Control: Adequate, Prn Tx Ordered Nausea/Vomiting Control: Adequate, Prn Tx Ordered Complications Possibly Related to Anesthesia: None Noted
--- NOTE | 2017-07-06 12:48 | GOP ---
[f rep st] OPERATIVE REPORT DATE OF OPERATION: 07/06/2017 SURGEON: Latonia Jimenez MD ANESTHESIA: General. ANESTHESIOLOGIST: Dr. Martha Funk PREOPERATIVE DIAGNOSIS: Bowel obstruction. POSTOPERATIVE DIAGNOSIS: Same. PROCEDURE PERFORMED: Laparoscopy with lysis of adhesions. FINDINGS: Large adhesive band that was near circumferential around her terminal ilium, 700 mL ascites. ESTIMATED BLOOD LOSS: 5 mL. INDICATIONS: Frida is a 51-year-old woman who has had onset of abdominal pain. It has worsened. She ultimately consented to go to the operating room for exploration. DESCRIPTION OF PROCEDURE: Patient was brought into the operating room and general anesthesia was administered. Her abdomen was prepped and draped in the usual sterile fashion. I infiltrated all sites with 0.5% Marcaine prior to making incisions. I made an incision at her umbilicus. I inserted the Veress needle. It passed the hang drop test. Her abdomen was insufflated to a pressure of 15 mmHg. I placed 2 additional trocars in the left upper and right upper quadrant. I explored her abdomen. She had ascites. I performed suction and sent this for peritoneal fluid. I then examined her gallbladder which appeared to be normal in color. I saw a large amount of dilated small bowel. I ran her small bowel and at the terminal ilium, there was an adhesive band which was nearly circumferential deep in the pelvis. It created a large waist along her terminal ileum just proximal to the ligament of Treitz. I was able to use scissors to cut the adhesive band. I suctioned more ascites and examined the rest of her abdomen. No additional areas of concern were noted. I then examined the piece of bowel again and it appeared that there was not bowel compromise and so I elected not to perform a resection. The abdomen was allowed to desufflate and the ports were removed. I closed the skin with 4-0 Monocryl. Dermabond applied. She was awakened in the operating room, extubated , and transferred to PACU in stable condition. /[id number]/MODL MTDD
--- NOTE | 2017-07-06 15:15 | ASMTCMCOM ---
CM Note CM Note Notes: Pt. had surgery today. D/c needs TBD at this time. Date Signed: 07/06/2017 03:14 PM Electronically Signed By:Sanna Sweet LCSW
[2017-07-07] MEDS: NS 1,000 ML IV SCH (03:14)
[2017-07-07 05:24] LABS: % IMMATURE GRANULYOCYTES 0.3 % (0.0-1.1); ABSOLUTE IMMATURE GRANULOCYTES 0.02 10^3/uL (0.00-0.10); ADD DIFF? NO; ADD MORPH? NO; ADD SCAN? NO; ATYPICAL LYMPHOCYTE FLAG 30 (0-99); FRAGMENT RBC FLAG 0 (0-99); HEMATOCRIT 37.4 % (38.0-47.0); LEFT SHIFT FLG 0 (0-99); LIPEMIA HEMOLYSIS FLAG 90 (0-99); MEAN CELL HEMOGLOBIN 29.8 pg (27.9-34.1); MEAN CELL HEMOGLOBIN CONCENTR. 34.8 g/dL (32.4-36.7); MEAN CELL VOLUME 85.8 fL (81.5-99.8); MEAN PLATELET VOLUME 9.7 fL (8.7-11.7); PLATELET CLUMPS FLAG 0 (0-99); PLATELET COUNT 180 10^3/uL (150-400); RED BLOOD CELL COUNT 4.36 10^6/uL (4.18-5.33); RED CELL DISTRIBUTION WIDTH 12.5 % (11.5-15.2)
[2017-07-07 05:34] LABS: ALANINE AMINOTRANSFERASE 68 IU/L (9-52); ALBUMIN 2.9 g/dL (3.5-5.0); ALKALINE PHOSPHATASE 85 IU/L (38-126); ANION GAP 11 mEq/L (8-16); ASPARTATE AMINOTRANSFERASE 32 IU/L (14-46); BILIRUBIN,TOTAL 1.6 mg/dL (0.1-1.4); CALCIUM 8.3 mg/dL (8.5-10.4); CARBON DIOXIDE 21 mEq/l (22-31); CHLORIDE 108 mEq/L (97-110); CREATININE 0.6 mg/dL (0.6-1.0); GLOMERULAR FILTRATION RATE > 60; GLUCOSE 65 mg/dL (70-100); POTASSIUM 3.5 mEq/L (3.5-5.2); SODIUM 140 mEq/L (134-144); TOTAL PROTEIN 5.4 g/dL (6.3-8.2)
--- NOTE | 2017-07-07 11:11 | HOSPPROG ---
Hospitalist Progress Note Assessment/Plan: 51 yo female admitted with abd pain. Found to have a SBO 07/04 on Hospital day # 4. Etiology remains unclear. She had laparascopy with Lysis of Adhesions on . A large Adhesion band near circumferential near the terminal ileum was found and lysed. No bowel resection was performed. Large amout of Ascites was found and Cultures are pending. all previous imaging and studies has been negative prior to acute SBO diagnosis Studies and work up: -Negative pelvic US -CT A/P c/w free fluid in the abdomen and pelvis of unclear significance, no abscess, no malignancy -elevated CRP -Negative Upper endoscopy -Negative Lower endoscopy -Negative stool studies #Ab Pain #SBO #S/P Lysis of Adhesions #Hx of GERD Plan: -post op care -CLD per surgery -Change appropriate meds to PO. I've held non essential meds -Decreased Protonix to daily. I will keep PO dosing until better oral intake -Await ascites cultures -Decrease IVF Dispo:cont inpatient Subjective: Feels better. Still with some abd discomfort. No CP or SOB Objective: Vital Signs Temp Pulse Resp BP Pulse Ox 36.6 C 62 18 133/77 H 92 07/07/17 09:12 07/07/17 09:12 07/07/17 09:12 07/07/17 09:12 07/07/17 09:12 Microbiology 07/06/17 10:51 Gram Stain - Final Peritoneal Fluid - Other 07/06/17 10:51 Mycobacterial Smear (DERRICK) - Final Peritoneal Fluid - Other Laboratory Results 07/07/17 04:46 07/07/17 04:46 07/06/17 07/07/17 07/08/17 05:59 05:59 05:59 Intake Total 3250 Output Total 900 1960 250 Balance -900 1290 -250 PT 12.7 SEC (12.0-15.0) 06/28/17 22:40 INR 0.96 (0.83-1.16) 06/28/17 22:40 - Physical Exam Constitutional: no apparent distress Eyes: PERRL, EOMI Ears, Nose, Mouth, Throat: moist mucous membranes, hearing normal Cardiovascular: regular rate and rhythym Respiratory: no respiratory distress, no rales or rhonchi, clear to auscultation Gastrointestinal: tenderness, No soft, non-tender abdomen, No no palpable masses , No guarding, No distension Skin: warm Neurologic: AAOx3, sensation intact bilaterally, weakness Psychiatric: interacting appropriately, not anxious, not encephalopathic ICD10 Worksheet Patient Problems: Problems Problem Status Onset Abdominal pain Acute
[2017-07-07] MEDS: PANTOPRAZOLE SODIUM 40 MG VIAL IVP SCH (11:18)
--- NOTE | 2017-07-07 11:37 | SOAPPROG ---
SOAP Progress Note Assessment/Plan: Assessment: Assessment and Plan: 51 year old female presents with epigastric abdominal pain, nausea, and vomiting which started shortly after eating Turkmen food 06/28/2017. She has a history of GERD and requires esophageal dilatation per report History of Chronic abdominal pain History of Right oophorectomy 20 years ago for cyst EGD and Colonoscopy normal Biopsies did not show explanation Stool studies negative POD # 1 s/p lysis of adhesions for large adhesion around terminal ileum. Feeling improved today Awaiting bowel function to return. sips and chips today Pain meds prn. DC NG Interpretation line used S: Feeling improved. Did not use IV pain medications. Small BM yesterday afternoon O: Lying in bed, NCAT, PER, No gross hearing defecits NG with scant thin yellow output CTAB, decreased at bases Regular rate Bowel sounds present. Less distention today. Soft. Incisions cdi Warm and Dry 06/30/17 11:45 07/04/17 16:20 07/05/17 09:55 07/06/17 08:12 07/07/17 11:33 Objective: Vital Signs Temp Pulse Resp BP Pulse Ox 36.6 C 62 18 133/77 H 92 07/07/17 09:12 07/07/17 09:12 07/07/17 09:12 07/07/17 09:12 07/07/17 09:12 Microbiology 07/06/17 10:51 Gram Stain - Final Peritoneal Fluid - Other 07/06/17 10:51 Mycobacterial Smear (DERRICK) - Final Peritoneal Fluid - Other Laboratory Results 07/07/17 04:46 07/07/17 04:46 07/06/17 07/07/17 07/08/17 05:59 05:59 05:59 Intake Total 3250 Output Total 900 1960 250 Balance -900 1290 -250 PT 12.7 SEC (12.0-15.0) 06/28/17 22:40 INR 0.96 (0.83-1.16) 06/28/17 22:40 ICD10 Worksheet Patient Problems: Problems Problem Status Onset Abdominal pain Acute - ICD10 Problem Qualifiers (1) Abdominal pain Qualifiers: Abdominal location: right upper quadrant Qualified Code(s): R10.11 - Right upper quadrant pain
[2017-07-07] MEDS: CHOLECALCIFEROL VIT D3 1,000 UNITS TAB PO SCH (12:57)
[2017-07-07] MEDS: PRESERVISION AREDS2 FORMULA EYE VIT 1 EACH PO SCH (12:57)
[2017-07-07] MEDS: SENNOSIDES/DOCUSATE SODIUM TAB PO SCH (12:57)
[2017-07-07] MEDS: MULTIVITAMINS 1 EACH TAB PO SCH (12:57)
--- NOTE | 2017-07-07 15:05 | ASMTCMCOM ---
CM Note CM Note Notes: Pt improving post op. PT cleared pt. Pt not ready for DC yet but should have no needs. Date Signed: 07/07/2017 03:04 PM Electronically Signed By:Deyanira Cabral LCSW
[2017-07-08] MEDS: NS 1,000 ML IV SCH (00:35)
[2017-07-08 05:16] LABS: ALANINE AMINOTRANSFERASE 62 IU/L (9-52); ALBUMIN 3.1 g/dL (3.5-5.0); ALKALINE PHOSPHATASE 81 IU/L (38-126); ANION GAP 8 mEq/L (8-16); ASPARTATE AMINOTRANSFERASE 25 IU/L (14-46); BILIRUBIN,TOTAL 1.4 mg/dL (0.1-1.4); CALCIUM 8.5 mg/dL (8.5-10.4); CARBON DIOXIDE 24 mEq/l (22-31); CHLORIDE 109 mEq/L (97-110); CREATININE 0.6 mg/dL (0.6-1.0); GLOMERULAR FILTRATION RATE > 60; GLUCOSE 80 mg/dL (70-100); POTASSIUM 3.2 mEq/L (3.5-5.2); SODIUM 141 mEq/L (134-144); TOTAL PROTEIN 5.4 g/dL (6.3-8.2)
[2017-07-08] MEDS ORDERED: CYCLOBENZAPRINE 10 MG TAB PO PRN (07:47)
[2017-07-08] MEDS ORDERED: PROTOCOL POTASSIUM 1 DOSE MISC PRN ×2 (08:28)
[2017-07-08] MEDS ORDERED: PROTOCOL MAGNESIUM 1 DOSE IV PRN (08:28)
[2017-07-08] MEDS ORDERED: PANTOPRAZOLE SODIUM 40 MG VIAL IVP SCH (09:00)
[2017-07-08 09:26] LABS: MAGNESIUM 2.1 mg/dL (1.6-2.3); POTASSIUM 3.3 mEq/L (3.5-5.2)
[2017-07-08] MEDS ORDERED: POTASSIUM CL 10 MEQ TAB PO ONE ×2 (09:54→19:20)
--- NOTE | 2017-07-08 11:55 | HOSPPROG ---
Hospitalist Progress Note Assessment/Plan: 51 yo female admitted with abd pain. Found to have a SBO 07/04 on Hospital day # 4. She had laparascopy with Lysis of Adhesions on 07/06. A large Adhesion band near circumferential near the terminal ileum was found and lysed. No bowel resection was performed. Large amount of Ascites was found and Cultures are pending. all previous imaging and studies has been negative prior to acute SBO diagnosis Studies and work up: -Negative pelvic US -CT A/P c/w free fluid in the abdomen and pelvis of unclear significance, no abscess, no malignancy -elevated CRP -Negative Upper endoscopy -Negative Lower endoscopy -Negative stool studies #Ab Pain #SBO #S/P Lysis of Adhesions #Hx of GERD #Hypokalemia Plan: -Diet per surgery. Now on a regular diet -PO meds -pain mgmt -await ascites cultures -SCD's -replace K Anticipate discharge tomorrow Subjective: Feels better. Diet advance today. Still with intermittent abd pain. Has had a BM Objective: Vital Signs Temp Pulse Resp BP Pulse Ox 36.6 C 53 L 17 159/85 H 94 07/08/17 07:20 07/08/17 07:20 07/08/17 07:20 07/08/17 07:20 07/08/17 07:20 Microbiology 07/06/17 10:51 Gram Stain - Final Peritoneal Fluid - Other Laboratory Results 07/07/17 04:46 07/08/17 04:33 07/07/17 07/08/17 07/09/17 05:59 05:59 05:59 Intake Total 3250 1250 Output Total 1960 2600 Balance 1290 -1350 PT 12.7 SEC (12.0-15.0) 06/28/17 22:40 INR 0.96 (0.83-1.16) 06/28/17 22:40 - Physical Exam Constitutional: no apparent distress Eyes: PERRL, EOMI Ears, Nose, Mouth, Throat: moist mucous membranes, hearing normal Cardiovascular: regular rate and rhythym, no murmur, rub, or gallop Respiratory: no respiratory distress, no rales or rhonchi Gastrointestinal: normoactive bowel sounds, tenderness (mild generalized TTP) Skin: warm Neurologic: AAOx3 Psychiatric: interacting appropriately, not anxious, not encephalopathic ICD10 Worksheet Patient Problems: Problems Problem Status Onset Abdominal pain Acute
[2017-07-08 18:50] LABS: POTASSIUM 3.5 mEq/L (3.5-5.2)
[2017-07-09 05:39] LABS: MAGNESIUM 2.1 mg/dL (1.6-2.3); POTASSIUM 3.5 mEq/L (3.5-5.2)
[2017-07-09] MEDS ORDERED: POTASSIUM CL 10 MEQ TAB PO ONE (08:15)
[2017-07-09] MEDS: PANTOPRAZOLE SODIUM 40 MG TAB PO SCH (09:53)
--- NOTE | 2017-07-09 10:10 | HOSPPROG ---
Hospitalist Progress Note Assessment/Plan: 51 yo female new to my care 07/09/17 admitted with abd pain. Found to have a SBO 07/04 on Hospital day #5. She had laparascopy with Lysis of Adhesions on . A large Adhesion band near circumferential near the terminal ileum was found and lysed. No bowel resection was performed. Large amount of Ascites was found and Cultures are pending. #Ab Pain #SBO #S/P Lysis of Adhesions #Hx of GERD #Hypokalemia #constipation Plan: -Diet per surgery. Now on a regular diet -PO meds -pain mgmt -ascites cultures no growth to date -SCD's -replace K DC home per surgery. Hospital medicine to sign off. Please call with further questions Subjective: tolerating diet, but still without BM. No abd pain. No fever or chills Objective: Vital Signs Temp Pulse Resp BP Pulse Ox 36.6 C 66 18 141/94 H 95 07/09/17 08:58 07/09/17 08:58 07/09/17 08:58 07/09/17 08:58 07/09/17 08:58 Microbiology 07/06/17 10:51 Gram Stain - Final Peritoneal Fluid - Other Laboratory Results 07/07/17 04:46 07/09/17 04:50 07/08/17 07/09/17 07/10/17 05:59 05:59 05:59 Intake Total 1250 1700 Output Total 2600 1000 Balance -1350 700 PT 12.7 SEC (12.0-15.0) 06/28/17 22:40 INR 0.96 (0.83-1.16) 06/28/17 22:40 gen nad cv rrr pulm clear abd soft +bs no guard or rebound tenderness ICD10 Worksheet Patient Problems: Problems Problem Status Onset Abdominal pain Acute
--- NOTE | 2017-07-09 15:57 | ASMTCMCOM ---
CM Note CM Note Notes: Patient doing better but will probably be here a couple parvin days. Discharge will most likely be home with no needs. Case management will follow. Date Signed: 07/09/2017 03:56 PM Electronically Signed By:CARMELLA Contreras
--- NOTE | 2017-07-09 17:56 | SOAPPROG ---
SOAP Progress Note Assessment/Plan: Assessment/Plan: 51yo F presented with epigastric abdominal pain, n/v EGD and Colonoscopy normal Biopsies did not show explanation Stool studies negative POD #3 s/p lysis of adhesions for large adhesion around terminal ileum. Feeling so much better Passing flatus but no BM yet Eating small amounts and drinking fluids Dispo: likely home tomorrow as long as pain still controlled and bowel function S: Feeling much better! worried that she has not had a BM is several days. Passing gas. hasn't eaten much today but will try to eat dinner O: Walking around room and brushing teeth, very comfortable No increased WOB Bowel sounds present. Less distention today. Soft. Incisions cdi Warm and Dry Objective: Vital Signs Temp Pulse Resp BP Pulse Ox 36.6 C 77 20 147/94 H 93 07/09/17 17:20 07/09/17 17:20 07/09/17 17:20 07/09/17 17:20 07/09/17 17:20 Microbiology 07/06/17 10:51 Gram Stain - Final Peritoneal Fluid - Other Laboratory Results 07/07/17 04:46 07/09/17 04:50 07/08/17 07/09/17 07/10/17 05:59 05:59 05:59 Intake Total 1250 1700 Output Total 2600 1000 200 Balance -1350 700 -200 PT 12.7 SEC (12.0-15.0) 06/28/17 22:40 INR 0.96 (0.83-1.16) 06/28/17 22:40 ICD10 Worksheet Patient Problems: Problems Problem Status Onset Abdominal pain Acute
[2017-07-09 19:43] LABS: POTASSIUM 4.6 mEq/L (3.5-5.2)
[2017-07-10 06:17] LABS: POTASSIUM 3.8 mEq/L (3.5-5.2)
[2017-07-10] MEDS ORDERED: POTASSIUM CL 10 MEQ TAB PO ONE (08:04)
[2017-07-10] MEDS: PANTOPRAZOLE SODIUM 40 MG TAB PO SCH (09:03)
[2017-07-10 09:16] VITALS: BP 156/95; PULSE 56; RESP 18; TEMP 97.3; O2SAT 95
--- NOTE | 2017-07-10 11:55 | ASDISCHSUM ---
Discharge Information Plan Status:Home with No Needs Medically Cleared to Leave:07/09/2017 Discharge Date:07/09/2017 CM D/C Disposition:Home, Routine, Self-Care ADT D/C Disposition:Home, Routine, Self-Care Projected Discharge Date:07/10/2017 12:00 PM Transportation at D/C: Discharge Delay Reason: Follow-Up Date:07/10/2017 12:00 PM Discharge Slot: Final Diagnosis:Cholecystitis Placement Information Patient Contact Information Contact Name:ERIC Relationship:Other Address: Work Phone: City: [facility] Phone: State/Zip Code: Email: Financial Information Financial Class: Primary Plan Desc:[facility] Primary Plan Number:[id number] Secondary Plan Desc: Secondary Plan Number: Assessment Information [facility] CM Progress Note CM Note CM Note Notes: Pt will have upper and lower endoscopies. Anticipate pt will DC with no needs but C/M available if needs change. Date Signed: 06/30/2017 01:41 PM Electronically Signed By:Deyanira Cabral LCSW [facility] CM Progress Note CM Note CM Note Notes: Patient had unremarkable upper and lower endoscopies, and GI has not been able to find a cause for her symptoms. Her pelvic ultrasound today was normal, as well. Patient continues to complain of pain. Surgery has been consulted and will consider exploratory lap if symptoms do not resolve. CM will follow if any discharge needs are anticipated. Date Signed: 07/03/2017 03:14 PM Electronically Signed By:Sparkle Mckeon RN [facility] CM Progress Note CM Note CM Note Notes: Abd xray today revealed SBO. NG tube placed. Pt's DC needs are unclear. Date Signed: 07/04/2017 02:42 PM Electronically Signed By:Deyanira Cabral LCSW [facility] CM Progress Note CM Note CM Note Notes: Pt. had surgery today. D/c needs TBD at this time. Date Signed: 07/06/2017 03:14 PM Electronically Signed By:Sanna Sweet LCSW [facility] CM Progress Note CM Note CM Note Notes: Pt improving post op. PT cleared pt. Pt not ready for DC yet but should have no needs. Date Signed: 07/07/2017 03:04 PM Electronically Signed By:Deyanira Cabral LCSW [facility] CM Progress Note CM Note CM Note Notes: Patient doing better but will probably be here a couple parvin days. Discharge will most likely be home with no needs. Case management will follow. Date Signed: 07/09/2017 03:56 PM Electronically Signed By:CARMELLA Contreras Intervention Information
--- NOTE | 2017-07-10 11:56 | ASMTCMCOM ---
CM Note CM Note Notes: Patient discharging home Independent with family. No additional Case management needs apparent at this time. Date Signed: 07/10/2017 11:56 AM Electronically Signed By:CARMELLA Contreras
--- NOTE | 2017-07-11 16:56 | GDS ---
[f rep st] DISCHARGE SUMMARY ADMITTING DIAGNOSIS: Acute abdominal pain. SECONDARY DIAGNOSIS: Small bowel obstruction. Gastroesophageal reflux disease. REASON FOR ADMISSION: The patient was seen in the emergency department on June 28, 2017, for acute onset abdominal pain, nausea, and vomiting after eating dinner with friends. She was then admitted for persistent abdominal pain and further evaluation and management of her abdominal pain. HOSPITAL COURSE: Abdominal ultrasound done June 28, 2017, showed gallbladder wall thickening of 3.4 mm with perihepatic and pericholecystic fluid. HIDA scan was then done June 29, 2017, and was found to be normal. Patient with persistent pain and nausea. CT abdomen and pelvis done June, showed pericholecystic fluid, mild peritoneal fluid consistent with peritonitis and moderate distention of distal ilium potentially related to chronic obstructive changes. At that time Gastroenterology was consulted. Colonoscopy and upper GI endoscopy were both done June 30, 2017, and were found to be negative. GI pathogen panel was also done, which came back negative as well. Pelvic and abdominal ultrasound was done on July 03, 2017, which showed uterine fibroids smaller than when compared to previous scan in 2014, also showed mild amount of fluid in the pelvis and absence of right ovary consistent with prior oophorectomy. Her symptoms continued to worsen. Abdominal x-ray was done July 04, 2017, which showed dilated loops of gas-filled small bowel with air-fluid levels. No colonic gas was identified. These findings were consistent with small-bowel obstruction. Repeat abdominal x-ray on July 05, 2017, showed worsening of the same. NG tube was placed at that time, but was unable to be advanced into the small bowel. Patient with worsening symptoms, she was taken to the operating room on July 06, 2017, for small-bowel obstruction and was found to have a large near circumferential adhesive band around the terminal ilium which was lysed. The patient's condition improved postoperatively throughout hospital stay. Pain and nausea were controlled with morphine, Dilaudid, and Zofran. The patient remain hospitalized until bowel function returned and she could tolerate regular diet. DISCHARGE CONDITION: Stable. POST DISCHARGE INSTRUCTIONS: No heavy lifting, pushing, or pulling for 2 weeks. F/u clinic with Dr. Jimenez in 1 week. Regular diet. Call our office with worsening symptoms, questions or concerns DISCHARGE MEDICATIONS: Resume home medications. See EMR for further details. Take Tylenol 650 mg every 4 hours as needed for pain. /[id number]/MODL MTDD
== END 2017-07-10 12:00 | disposition home or self-care (01) | DRG 336 ==
LOC: INTOOBSV 06-29 01:45 → F1N 06-29 02:02 → OBSVTOIN 06-30 11:57
PROVIDERS: ADMIT Surgery; ATTEND Surgery
PROC: 0DB78ZX Excision of Stomach, Pylorus, Via Natural or Artificial Opening Endoscopic, Diagnostic (ICD-10-PCS; 2017-07-01 11:30)
PROC: 0DBE8ZX Excision of Large Intestine, Via Natural or Artificial Opening Endoscopic, Diagnostic (ICD-10-PCS; 2017-07-01 11:30)
PROC: 0DNB4ZZ Release Ileum, Percutaneous Endoscopic Approach (ICD-10-PCS; principal; 2017-07-06 10:00)
DX: K56.50 Intestinal adhesions [bands], unspecified as to partial versus complete obstruction (principal); K21.9 Gastro-esophageal reflux disease without esophagitis; R18.8 Other ascites; E87.6 Hypokalemia; E87.2 Acidosis
CPT/HCPCS: 96374; 97161-GP; A9537; G0378; J1170; J1335; J2060; J2250; J2405; J2550; J2704; J3010; Q9967

== ENCOUNTER → 2017-07-24 | Outpatient (CLI) | payer MEDICAID | LOC: FIMAGING 10:29 | PROVIDERS: ATTEND Surgery | DX: K59.00 Constipation, unspecified (principal) ==